=== PATIENT | male | born 1940 | race Caucasian/White ===

== ENCOUNTER 2018-12-20 10:18 | Outpatient (REF) | payer MEDICARE, BC, SELFPAY ==
[2018-12-20 14:39] LABS: BUN 10 mg/dL (7-18); CREATININE 0.92 mg/dL (0.70-1.30); Chloride 105 mmol/L (98-107); Glucose 117 mg/dL (70-100); Potassium 4.7 mmol/L (3.5-5.1); Sodium 141 mmol/L (136-145)
== END 2018-12-20 10:38 ==
LOC: NCHCN 10:18
PROVIDERS: PCP Family Medicine; Visit Provider Family Medicine
DX: I10 Essential (primary) hypertension (principal)
CPT/HCPCS: 80048

== ENCOUNTER 2020-04-16 12:49 | Outpatient (REF) | payer MEDICARE, BC, SELFPAY ==
[2020-04-16 15:27] LABS: Anion Gap 9.5 mmol/L (3-11); BUN 13 mg/dL (7-18); CO2 27.5 mmol/L (21.0-32.0); CREATININE 1.12 mg/dL (0.70-1.30); Calcium 8.9 mg/dL (8.5-10.1); Chloride 105 mmol/L (98-107); Glucose 93 mg/dL (74-106); Potassium 4.5 mmol/L (3.5-5.1); Sodium 142 mmol/L (136-145)
== END 2020-04-16 13:09 ==
LOC: NCHCN 12:49
PROVIDERS: PCP Family Medicine; Visit Provider Family Medicine
DX: I10 Essential (primary) hypertension (principal)
CPT/HCPCS: 80048

== ENCOUNTER → 2020-05-13 10:00 | Outpatient (BNVA) | payer MEDICARE, BC, SELFPAY | PROVIDERS: PCP Family Medicine; Referring Provider Family Medicine; Visit Provider Psychiatry & Neurology Neurology | DX: R26.89 Other abnormalities of gait and mobility (principal); G25.0 Essential tremor | CPT/HCPCS: 99204; 99215 ==

== ENCOUNTER 2021-05-06 09:31 | Outpatient (REF) | payer MEDICARE, SELFPAY ==
[2021-05-06 14:22] LABS: Anion Gap 11.1 mmol/L (3-11); BUN 13 mg/dL (7-18); CO2 24.9 mmol/L (21.0-32.0); CREATININE 0.8 mg/dL (0.70-1.30); Calcium 8.7 mg/dL (8.5-10.1); Chloride 106 mmol/L (98-107); Glucose 98 mg/dL (74-106); Magnesium 1.6 mg/dL (1.8-2.4); Potassium 4.7 mmol/L (3.5-5.1); Sodium 142 mmol/L (136-145); Vitamin B12 581 pg/mL (193-986)
== END 2021-05-06 09:32 | disposition home or self-care (01) ==
LOC: LBN 09:31
PROVIDERS: PCP Family Medicine; Visit Provider Family Medicine
DX: I10 Essential (primary) hypertension (principal); R26.89 Other abnormalities of gait and mobility
CPT/HCPCS: 80048; 82607; 83735

== ENCOUNTER 2021-05-22 04:24 | Outpatient (CLI) | payer MEDICARE, SELFPAY ==
--- NOTE | 2021-05-22 | DI.RAD_ITS ---
Exam(s) XR CHEST 2V PA LATERAL EXAM: XR CHEST 2V PA LATERAL CLINICAL HISTORY: RT BASILAR RALES,R09.89 TECHNIQUE: 2D digital imaging was performed. COMPARISON: No exams were available for comparison FINDINGS: MEDIASTINUM: Normal. HEART: Normal. PULMONARY VASCULATURE: Normal. LUNGS: Clear. PLEURAL SPACE: No pleural effusion or pneumothorax. BONE:Degenerative changes in the spine. IMPRESSION: No acute pulmonary findings. DATA REPOSITORY: RADIATION DOSE DELIVERED:
== END 2021-05-22 04:44 ==
PROVIDERS: PCP Family Medicine; Visit Provider Family Medicine
DX: R09.89 Other specified symptoms and signs involving the circulatory and respiratory systems (principal)
CPT/HCPCS: 71046

== ENCOUNTER 2021-08-31 03:02 | Outpatient (CLI) | payer MEDICARE, SELFPAY ==
[2021-08-31 15:51] LABS: Source Nasal/Nares
[2021-08-31 21:29] LABS: COVID-19 PCR Negative (Negative)
== END 2021-08-31 03:03 | disposition home or self-care (01) ==
LOC: LBO 03:02
PROVIDERS: PCP Family Medicine; Visit Provider Family Medicine
DX: Z20.822 Contact with and (suspected) exposure to COVID-19 (principal); Z01.818 Encounter for other preprocedural examination
CPT/HCPCS: 87635

== ENCOUNTER 2021-09-02 01:45 | Outpatient (CLI) | payer MEDICARE, SELFPAY ==
--- NOTE | 2021-09-02 | DI.CT_ITS ---
Exam(s) CT CHEST W EXAM: CT CHEST W CLINICAL HISTORY: BASILAR RALES,R09.89 TECHNIQUE: Imaging Protocol: Axial computed tomography images with coronal and sagittal reformatted images were created and reviewed CONTRAST MATERIAL: Intravenous: Omnipaque 350 Contrast volume:70 mL. COMPARISON: CR XR CHEST 2V PA LATERAL from 05/22/2021 CR XR CHEST 2V PA LATERAL from 05/22/2021 FINDINGS: Tracheobronchial tree: Patent where visualized. Pulmonary parenchyma: No consolidation or dominant measurable mass. Mild scarring in the lung bases. Mild chronic interstitial disease in the lung bases. Mediastinum and Quyen: No dominant adenopathy or fluid collection. Thyroid gland: Unremarkable. Pleura: No effusion or pneumothorax. Heart: The heart is not dilated. Coronary artery calcification. No pericardial effusion. Aorta: Thoracic aorta non-dilated. Atherosclerosis. Upper abdomen: Fatty infiltration of the liver. 9 mm cyst in the right kidney. No follow-up is rec ommended. Lymph nodes: Within normal limits. Bones: Within normal limits for the patient's age. Soft tissues: Unremarkable. IMPRESSION: 1. 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 2. No acute pulmonary process. RADIATION DOSE DELIVERED: 536.92mGy.cm Total DLP DATA REPOSITORY: All CT scans at this facility are submitted to the National Radiology Data Registry (NRDR) Dose Index Registry (DIR) with the [employer] (ACR). RADIATION OPTIMIZATION: All CT scans at this facility use at least one of these dose optimization te chniques: automated exposure control; mA and/or kV adjustment per patient size (includes targeted exa ms where dose is matched to clinical indication); or iterative reconstruction.
[2021-09-02] MEDS: Omnipaque 350 MG/ML 100 ML BTL IJ (13:19)
[2021-09-02] MEDS: Normal Saline Flush 10 ML SYR IVP (13:20)
[2021-09-02] MEDS: Normal Saline - Diluent 50 ML VIAL IV (13:20)
== END 2021-09-02 02:05 ==
PROVIDERS: PCP Family Medicine; Visit Provider Family Medicine
DX: R09.89 Other specified symptoms and signs involving the circulatory and respiratory systems (principal); J84.10 Pulmonary fibrosis, unspecified; J98.4 Other disorders of lung
CPT/HCPCS: 71260; J3490

== ENCOUNTER 2021-09-02 01:45 | Outpatient (CLI) | payer MEDICARE, SELFPAY ==
[2021-09-02] MEDS: Barium Sulfate 81% w/w for Oral Suspension 148 GM BTL 80 GM PO (15:09)
[2021-09-02] MEDS: Barium Sulfate Oral Paste 40% W/V 230 ML TUBE 13 ML PO (15:11)
[2021-09-02] MEDS: Barium Sulfate 40% W/V 1500 CPS 250 ML BTL 20 ML PO (15:11)
--- NOTE | 2021-09-02 15:12 | DI.RAD_ITS ---
Exam(s) RF MODIFIED SPEECH BA SWALLOW TECHNIQUE: Modified barium swallow was performed in conjunction with speech pathology. CONTRAST MATERIAL: Oral barium contrast was administered according to protocol. COMPARISON: No exams were available for comparison FINDINGS: Note that this is not a dedicated esophagram, distal esophagus not evaluated. There is no evidence of aspiration or penetration of thick liquids or barium coated delete cookies. Speech pathology report to follow. There was penetration of thin liquids. Cough reflex was variable . ... IMPRESSION: Penetration of thin liquids was noted during the examination. RADIATION DOSE DELIVERED: noelle Caballero= mGy
--- NOTE | 2021-09-02 15:21 | ST.MBS_ITS ---
Date of Service Date of service: 09/02/21 Time of Service: 15:21 Modified Barium Swallow Study Findings: Videofluoroscopic Swallowing Evaluation (VFSE) / Modified Barium Swallow Study (MBSS) Speech Language Pathology Report HPI: Pt is a 81 year old male referred for clinical swallowing evaluation and modified barium swallow study per Dr. Valdez Cardona given pharyngeal phase dysp hagia and concerns regarding rales in right lung base/aspiration concern. PMHx: Basilar rales, pharyngeal phase dysphagia, osteoarthritis (r knee), hyperlipidemia, hypertension, mild cognitive impairment, GERD Predisposing dysphagia risk factors: GERD , cervical kyphosis, cognitive impairment Clinical signs of possible chronic dysphagia: pharyngeal globus, overt s.s a spiration (TC) Precipitating dysphagia risk factors / triggering event: Noted basilar rales per MD recently Previous Imaging: N/A IMPRESSIONS: Swallow safety is impaired; swallow efficiency is impaired. Mild oropharyngeal dysphagia with esophageal component, likely chronic, characterized by reduced initiation of pharyngeal swallow, reduced laryngeal elevation, partial epiglottic inversion, and incomplete laryngeal vestibule closure resulting in trace silent aspiration during the swallow; cough reflex is noted however not consistent during micro-aspiration events, instead stimulating throat clear response; partial laryngeal excursion is paired with incoordinated movement/hesitancy; noted esophageal retention does not appear to impede overall bolus flow; small hypertrophy noted along cervical esophagus at C4 level; small amount of residue remains independent of texture/consistency at C5 level, however not cleared despite use of trialed strategies. Suspect either esophageal stasis or trace silent micro-aspiration may be partial cause of patient's intermittent throat clearing. Patient appears to be at low-moderate risk for potential aspiration PNA and/or pulmonary compromise. Diet modification is not indicated. Swallow prognosis is good-fair given age, pmhx, and pending patient/caregiver training in risk management as outlined, including use of trialed compensatory strategies as outlined above. Patient appears to be a good candidate for behavioral swallow rehabilitation. Specialist referrals: GI Ancillary tests: N/A Diet texture recommendation: IDDSI Level 7 regular solids, 0 thin liquids Please see further details at www.iddsi.org Risk Management: Behavioral reflux precautions, including upright position during + 90 mins after meals. Small sips Multiple swallows per bolus x2 to encourage clearance of pharyngeal stasis/residue Control risk factors for aspiration pneumonia via (a) thorough oral hygiene & (b) maintaining physical mobility as tolerated PLAN: Therapy: Recommend subsequent outpatient session with [employer] SET UP OPERATOR to review results of today's exam and develop treatment plan as appropriate. May consider the following: - super supraglottic swallow (as exercise vs comp strategy), effortful swallow, CTAR, use of chin tuck + TC with re-swallow after thin liquids, small sip size, and monitoring for overt s/sx aspiration during thin liquid intake in particular, utilizing volitional throat clear + reswallow - RMST Goal: TBD pending patient/caregiver interview Follow-up exam: N/A Thank you for allowing me to take part in this patient's care. Please feel free to contact me with any questions/concerns. Syeda Gonzalez MA CCC-[employer] SET UP OPERATOR Speech Language Pathologist [phone] SUBJECTIVE: Patient reports he has had to cut meats in smaller pieces/take smaller bites/ chew more consciously but has not changed his diet nor has unintentionally lost weight due to swallowing difficulties; does note that pills are at times difficult, will stick at back of throat. OBJECTIVE: Videofluoroscopic Swallow Evaluation (VFSE/MBSS) was conducted in the lateral and [id number] projections by Speech-Language Pathologist, in collaboration with Radiologist, to evaluate oropharyngeal swallow function. Anatomic view under fluoroscopy: WFL PO Barium Contrast Trials Oral barium water-soluble contrast was administered as follows: IDDSI Level 0 Varibar thin liquid (40% w/v) IDDSI Level 2 Varibar nectar thick/mildly thick liquid (40% w/v) IDDSI Level 3 Varibar thin honey/liquidised/moderately-thick (40% w/v) IDDSI Level 4 Varibar pudding/pureed/extremely thick (40% w/v) IDDSI Level 7 Regular Solid: 1/2 nicky cracker coated in 3 mL Varibar pudding PHYSIOLOGIC FINDINGS (1) Oral Impairment 1 Lip Closure 0-No labial escape 2 Tongue Control 0- Cohesive bolus between tongue to palatal seal 3 Bolus Preparation/Mastication 1- Slowed/prolonged chewing/mashing with complete recollection 4 Bolus Transport/Lingual Motion 0- Brisk tongue motion 5 Oral residue 1- Trace residue lining oral structures Location palate, tongue 6 Initiation of pharyngeal swallow 3- Bolus head at pyriform sinus Pharyngeal Impairment 7 Velar Elevation 0- No bolus between soft palate and pharyngeal wall 8 Laryngeal Elevation 1- Partial superior movement of thyroid cartilage with partial approximation of arytenoids to epiglottic petiole 9 Anterior Hyoid Excursion 1- Partial anterior movement noted incoordinated movement/hesitancy 10 Epiglottic Movement 1- Partial inversion 11 Laryngeal Vestibule Closure 1- Incomplete; narrow column of air/contrast in laryngeal vestibule Penetration during initial swallow onset from current bolus Aspiration during initial swallow onset from current bolus PAS / Overall 8-Point Penetration-Aspiration Scale (2) 5 - Material enters the airway contacts the vocal folds and is not ejected from the airway Clinical Indicator(s) of Prandial/Postprandial Aspiration Cough, Throat Clear 12 Pharyngeal Stripping Wave 1- Present; diminished 13 Pharyngeal Contraction 1- Incomplete; pseudodiverticulae 14 PES/UES Opening 1- Partial distension and partial duration; partial obstruction of flow 15 Tongue Base Retraction 1- Trace column of contrast between tongue base and posterior pharyngeal wall 16 Pharyngeal residue 1- Trace residue within or on pharyngeal structures Location [place] Pharyngeal Residue Severity Rating Scale(3) Valleculae II Trace 1-5% Trace coating Pyriform sinuses II Trace 1-5% Trace coating Aryepiglottic folds Esophageal Impairment 17 Esophageal Clearance in Upright Position 1- Esophageal retention Notes This study was performed for interpretation only of the oropharyngeal and pharyngoesophageal domains of swallowing, and is not intended to diagnose any other radiologic abnormalities or substitute for a formal esophagram study. Does not appear to impede bolus flow; small hypertrophy noted along cervical esophagus at C4 level; small amount of residue independent of texture/consistency remains at C5 level JENNIFER: (4) Severity LEVEL 6 - Full PO: normal diet - Within functional limits/modified independence Trialed Compensatory Strategies & Outcome: Maneuvers Successful/Unsuccessful (+/-) Postures Successful/Unsuccessful (+/-) 3 second Preparatory Set Chin Tuck Posture + Cough Posterior Head tilt Reflexive + Cued + Throat Clear Head Tilt to Reflexive + Left Cued Right Saliva swallow x2 - Head Turn/Rotation to Supraglottic Swallow Left Super-supraglottic Swallow Right Bolus Modifications Successful/Unsuccessful (+/-) Delivery/Alternating Consistencies - Wash with thin + Delivery/Via Straw Reduced Volume + Reduced Rate of Intake + Increased Viscosity Other: Coding CPT Codes MOTION FLUOROSCOPY/SWALLOW - 89548 ([id number]) 1: Janiya Salomon et al. ?MBS measurement tool for swallow impairment--MBSImp: establishing a standard.? Dysphagia vol. 23,4 (2008): 392-405. doi:10.1007/y85345-429-6835-8 2: (Jackie, et al, 1996) 3: (Saul et al, 2015) 4: The Dysphagia Outcome and Severity Scale is a 7-point scale developed to systematically rate the functional severity of dysphagia based on objective assessment and make recommendations for diet level, independence level, and type of nutrition.
== END 2021-09-02 02:05 ==
PROVIDERS: PCP Family Medicine; Visit Provider Speech-Language Pathologist
DX: R13.13 Dysphagia, pharyngeal phase (principal)
CPT/HCPCS: 74221

== ENCOUNTER 2022-03-10 09:06 | Outpatient (CLI) | payer MEDICARE, SELFPAY ==
--- NOTE | 2022-03-10 11:05 | DI.MRI_ITS ---
Exam(s) MR BRAIN WO EXAM: MR BRAIN WO CLINICAL HISTORY: DYSARTHRIA, R47.1, MILD COGNITIVE IMPAIRMENT TECHNIQUE: Multiplanar multisequence MRI of the brain was performed. COMPARISON: CT HEAD WITHOUT CONTRAST from 02/12/2015 FINDINGS: VENTRICLES AND EXTRA AXIAL SPACES: Mild ex vacuo dilatation. MIDLINE SHIFT: None. CEREBRAL PARENCHYMA: Moderate atrophy. White matter changes of small vessel disease, moderate. No f ocus of restricted diffusion to suggest acute infarct. No space-occupying lesion identified. HEMORRHAGE: None. BRAINSTEM/CEREBELLUM: Normal. VISUALIZED PARANASAL SINUSES/MASTOIDS:Clear. [place] OF TERRY: Normal flow void. PITUITARY GLAND: Unremarkable. OTHER FINDINGS: None. IMPRESSION: Atrophy and white matter changes of small vessel disease. No evidence of acute infarct. DATA REPOSITORY:
== END 2022-03-10 09:26 ==
PROVIDERS: PCP Family Medicine; Visit Provider Family Medicine
DX: R47.1 Dysarthria and anarthria (principal); G31.84 Mild cognitive impairment of uncertain or unknown etiology; R90.82 White matter disease, unspecified; G31.89 Other specified degenerative diseases of nervous system
CPT/HCPCS: 70551

== ENCOUNTER → 2022-04-27 13:34 | Outpatient (BNVA) | payer MEDICARE, SELFPAY | PROVIDERS: PCP Family Medicine; Referring Provider Family Medicine; Visit Provider Psychiatry & Neurology Neurology | DX: R26.89 Other abnormalities of gait and mobility (principal); G25.0 Essential tremor; G20 Parkinson's disease; R41.3 Other amnesia; R40.4 Transient alteration of awareness | CPT/HCPCS: 99215 ==

== ENCOUNTER 2022-04-30 09:32 | Outpatient (CLI) | payer MEDICARE, SELFPAY ==
--- NOTE | 2022-04-30 09:14 | DI.RAD_ITS ---
Exam(s) XR KNEE LT 3V AP,LAT,YOEL EXAM: XR KNEE LT 3V AP,LAT,YOEL CLINICAL HISTORY: OA FOR LEFT KNEE. TECHNIQUE: 2D digital imaging was performed of the left knee. Three images were obtained. AP, left and PA tunnel views were obtained. COMPARISON: No previous for comparison. FINDINGS: BONES: No acute fracture is present. No bony destructive lesion is seen. Enthesophytes are seen at b oth the superior and inferior aspect of the patella anteriorly. JOINTS: The knee is normally aligned. There is a small suprapatellar joint effusion. Moderately khoi re tricompartment degenerative changes are present with joint space narrowing and periarticular spurr ing. Chondrocalcinosis is seen in the femoral tibial joint. SOFT TISSUE: Normal. IMPRESSION: Moderately severe degenerative changes of the left knee. DATA REPOSITORY: RADIATION DOSE DELIVERED:
== END 2022-04-30 09:33 | disposition home or self-care (01) ==
LOC: DIORS 09:33
PROVIDERS: PCP Family Medicine; Referring Provider Family Medicine; Visit Provider Student in an Organized Health Care Education/Training Program
DX: M17.12 Unilateral primary osteoarthritis, left knee (principal)
CPT/HCPCS: 20610; 73562; 99213; J1040

== ENCOUNTER 2022-05-05 17:46 | Outpatient (REF) | payer MEDICARE, SELFPAY ==
[2022-05-07 14:22] LABS: HSV 1 DNA Result Negative (Negative); HSV 2 DNA Result Negative (Negative)
== END 2022-05-05 17:47 | disposition home or self-care (01) ==
LOC: NCHCN 17:46
PROVIDERS: PCP Family Medicine; Visit Provider Family Medicine
DX: K12.1 Other forms of stomatitis (principal)
CPT/HCPCS: 87529; U0003

== ENCOUNTER → 2022-05-18 12:13 | Outpatient (BNVA) | payer MEDICARE, SELFPAY | PROVIDERS: PCP Family Medicine; Referring Provider Family Medicine; Visit Provider Psychiatry & Neurology Neurology | DX: R26.89 Other abnormalities of gait and mobility (principal); G25.0 Essential tremor; R41.3 Other amnesia; R40.4 Transient alteration of awareness | CPT/HCPCS: 99214 ==

== ENCOUNTER → 2022-08-11 09:08 | Outpatient (BNVA) | payer MEDICARE, SELFPAY | PROVIDERS: PCP Family Medicine; Referring Provider Family Medicine; Visit Provider Psychiatry & Neurology Neurology | DX: R26.89 Other abnormalities of gait and mobility (principal); G25.0 Essential tremor; G20 Parkinson's disease; R41.3 Other amnesia; R40.4 Transient alteration of awareness | CPT/HCPCS: 99214 ==

== ENCOUNTER 2022-11-01 07:29 | Emergency (ER) | payer MEDICARE, SELFPAY ==
[2022-11-01] VITALS (35 sets, daily range): BP systolic 126–157; BP diastolic 67–86; PULSE 70–79; RESP 18–32; TEMP 37.3; O2SAT 96–99
--- NOTE | 2022-11-01 07:30 | RT.EKG_ITS ---
APPROVED REPORT Exam: Resting ECG Reason for Exam: chest discomfort Patient Location: E HR:78 bpm ECG Measurements Heart Rate 78 AXIS IL 197 P 30 QRSd 92 QRS -45 QT 374 T 51 QTc 427 Conclusion Sinus rhythm...normal P axis, V-rate 60- 99 Left anterior fascicular block...axis(240,-40), init forces inf
[2022-11-01 08:00] LABS: Abs Immature Grans 0.14 10^3/uL (0.0-0.06); Absolute Basophil Count 0.04 10^3/uL (0.0-0.2); Absolute Eosinophil Count 0.11 10^3/uL (0.0-0.7); Absolute Lymphocyte Count 0.82 10^3/uL (1.2-3.4); Absolute Monocyte Count 1.38 10^3/uL (0.1-0.8); Absolute Neutrophil Count 8.02 10^3/uL (1.2-6.7); Basophils % 0.4; HCT 38.4 % (40.0-50.0); HGB 13.4 g/dL (13.5-17.5); Immature Grans % 1.3; Lymphocytes % 7.8; MCH 32.8 pg (27.0-33.0); MCHC 34.9 % (32.0-36.0); MCV 94 fL (80-95); Monocytes % 13.1; Neutrophils % 76.4; Platelet Count 178 10^3/uL (130-400); RBC 4.09 10^6/uL (4.36-5.78); RDW-SD 45.2 fL; WBC 10.51 10^3/uL (4.4-10.8)
--- NOTE | 2022-11-01 08:15 | DI.CT_ITS ---
Exam(s) CT CHEST PE CTA EXAM: CT CHEST PE CTA CLINICAL HISTORY: pleuritic chest pain. TECHNIQUE: Imaging Protocol: Axial CT angiography was performed with multi-slice acquisition and mu lti-planar reconstructions as well as axial, coronal and sagittal MIP reconstructions. CONTRAST MATERIAL: Intravenous: Omnipaque 350 Contrast volume:9 ml COMPARISON: CT CT CHEST W from 09/02/2021 FINDINGS: Pulmonary Arteries: No evidence of filling defect to suggest pulmonary emboli. Tracheobronchial tree: Patent where visualized. Mediastinum and Quyen: No dominant adenopathy or fluid collection. Pulmonary parenchyma: Mildly limited evaluation due to respiratory motion. Mild basilar atelectasis. Mild fibrotic changes. No consolidation or dominant measurable mass. Pleura:tiny left pleural effusion. No pneumothorax. Heart: Mildly dilated. No coronary artery calcifications are seen. Aorta: Thoracic aorta non-dilated. No aneurysm. No dissection. Minimal atherosclerotic changes. Upper abdomen: Unremarkable. Bones: Unremarkable for age. IMPRESSION: Tiny left pleural effusion. Mild basilar atelectasis. No evidence of pulmonary embolism. RADIATION DOSE DELIVERED: 246.26mGy.cm Total DLP DATA REPOSITORY: All CT scans at this facility are submitted to the National Radiology Data Registry (NRDR) Dose Index Registry (DIR) with the [employer] (ACR). RADIATION OPTIMIZATION: All CT scans at this facility use at least one of these dose optimization te chniques: automated exposure control; mA and/or kV adjustment per patient size (includes targeted exa ms where dose is matched to clinical indication); or iterative reconstruction.
[2022-11-01 08:19] LABS: ALT 24 U/L (16-63); AST 19 U/L (15-37); Albumin 3.6 g/dL (3.4-5.0); Alkaline Phosphatase 68 U/L (46-116); Anion Gap 8.1 mmol/L (3-11); BUN 12 mg/dL (7-18); Bilirubin, Total 0.5 mg/dL (0.2-1.0); CO2 27.9 mmol/L (21.0-32.0); Calcium 8.7 mg/dL (8.5-10.1); Chloride 101 mmol/L (98-107); Estimated GFR 76.08 (mL/min/1.73m2); Glucose 135 mg/dL (74-106); Magnesium 1.6 mg/dL (1.8-2.4); Potassium 4.4 mmol/L (3.5-5.1); Sodium 137 mmol/L (136-145); Total Protein 7.3 g/dL (6.4-8.2); Troponin I < 50 ng/L (<or=60)
[2022-11-01 08:29] LABS: D-Dimer 879 ng/mlFEU (<500)
[2022-11-01] MEDS: ACETAMINOPHEN 1,000 MG/100 ML BTL 400 MG IVPB (08:38)
[2022-11-01] MEDS: MAGNESIUM SULFATE 1 GM/100 ML BAG IVPB (09:30)
[2022-11-01 10:51] LABS: Troponin I < 50 ng/L (<or=60)
--- NOTE | 2022-11-01 11:05 | ED.GENADUL_ITS ---
Discharge Plan Disposition Patient Disposition: Home Condition: Stable Discharge Details Clinical Impression: Chest pain, pleuritic, Pleural effusion on left, Hypomagnesemia Primary Care Provider: Valdez Barriga ED Provider: Shaw Calero Home Meds and New Rx's Prescriptions: Continued memantine 10 mg tablet 10 mg PO BID Qty: 180 3RF lisinopril 2.5 mg tablet 2.5 mg PO DAILY magnesium oxide 500 mg capsule 500 mg PO DAILY cholecalciferol (vitamin D3) 25 mcg (1,000 unit) capsule 25 mcg PO DAILY cyanocobalamin (vitamin B-12) Tablet,Chewable 1 tab PO DAILY Rx Instructions: 1000 mcg omeprazole 40 mg capsule,delayed release(DR/EC) 40 mg PO DAILY propranolol 60 MG capsule,extended release 24 hr 60 mg PO DAILY [facility] Restore 1 cap PO DAILY Discharge Instructions Instructions: Chest Pain (ED), Pleural Effusion (ED), Hypomagnesemia (ED) Additional Instructions: Please take acetaminophen (tylenol) - 650mg every 6 hours by mouth as needed for pain. Please follow-up with your primary care physician. Call today to arrange timely follow-up. Be sure to discuss results of labs and diagnostic imaging that was performed today. Additional outpatient diagnostic testing may be necessary. Return to the ER immediately for any worsening or new concerning symptoms. Referrals: Valdez Barriga [Primary Care Provider] - Discharge Data Discharge Date/Time-TO BE ENTERED AT DEPARTURE: 11/01/22 11:31 Medical Decision Making 82-year-old male here with pleuritic chest pain. Patient is saturating well in no respiratory distress. Hemodynamically stable. Plan for PE versus musculoskeletal versus ACS versus less likely pneumothorax. Initial EKG was reviewed interpreted by me: Please report, nondiagnostic. Initial labs reviewed and troponin negative. D-dimer is elevated. CT of the chest was interpreted by radiology\: Tiny left pleural effusion.? Mild basilar atelectasis.? No evidence of pulmonary embolism. Repeat EKG was reviewed and interpreted by me: Please see report, nondiagnostic. Delta troponin negative and unchanged from prior. Patient reassessed and notes significant improvement in pain after acetaminophen IV and magnesium. Suspect musculoskeletal versus possibly related to small pleural effusion. Plan for outpatient follow-up with PCP. All results were discussed with the patient. Usual customary discharge instructions reviewed. Disposition decision was made weighing the risks and benefits of hospitalization versus outpatient treatment, the risk for further decompensation, and the patient's wishes. The patient was stable and requested discharge. Prior to discharge, my usual and customary return precautions were reviewed with the patient - this included follow-up instructions and reason to return to the emergency department if condition worsens, does not improve as expected, or other new concerns arise. Sign Out No HPI General Date/Time Provider Initiated Documentation: 11/01/22 07:42 . Limitations to Documentation: no limitations . HPI Narrative: 82-year-old male here with chief complaint of chest pain. Chest pain is pleuritic in nature and only present when he takes a deep breath. Discomfort is moderate. Discomfort started last night. Pain has persisted. Does not recall any trauma. He has no associated shortness of breath. No associated calf pain. Related Data Home Medications Medication Instructions Recorded Confirmed propranolol 60 mg capsule,24 60 mg PO DAILY 01/18/17 11/01/22 hr,extended release [facility] Restore 1 cap PO DAILY 01/19/17 08/11/22 cholecalciferol (vitamin D3) 25 25 mcg PO DAILY 04/02/22 11/01/22 mcg (1,000 unit) capsule cyanocobalamin (vitamin B-12) 1 tab PO DAILY 04/02/22 11/01/22 lisinopril 2.5 mg tablet 2.5 mg PO DAILY 04/02/22 11/01/22 magnesium oxide 500 mg capsule 500 mg PO DAILY 04/02/22 11/01/22 omeprazole 40 mg capsule,delayed 40 mg PO DAILY 04/27/22 11/01/22 release memantine 10 mg tablet 10 mg PO BID #180 tabs 05/18/22 11/01/22 Previous Rx's Medication Instructions Recorded memantine 10 mg tablet 10 mg PO BID #180 tabs 05/18/22 Allergies Allergy/AdvReac Type Severity Reaction Status Date / Time soy AdvReac Mild sneezing Unverified 11/01/22 08:14 General Stated Complaint: Chest Pain TORIBIO: 3 Review of Systems All systems reviewed & are unremarkable except as noted in HPI and below Constitutional Constitutional: Denies fever(s) Cardiovascular Cardiovascular: Reports as per HPI Respiratory Respiratory: Reports as per HPI Musculoskeletal Musculoskeletal: Reports as per HPI PFSH All Active Problems (Updated 11/01/22 @ 11:09 by Shaw Calero MD) Chest pain, pleuritic (Acute) Pleural effusion on left (Acute) Hypomagnesemia (Acute) Osteoarthritis of left knee (Acute) Nonspecific paroxysmal spell (Acute) Memory loss (Acute) Parkinsonism (Acute) Dysarthria (Acute) Primary osteoarthritis of right knee (Acute 02/10/18) Osteoarthritis (Chronic) Loss of balance (Acute) Alcohol use (Acute) Dysphagia, pharyngeal phase (Acute) Essential tremor (Acute) Imbalance (Acute) Medical History Benign essential hypertension Cataract Erectile dysfunction GERD (gastroesophageal reflux disease) Hyperlipidemia Hypertension Macular degeneration Mild cognitive impairment, so stated Osteoarthritis of right knee Pulmonary fibrosis Rosacea Surgical History S/P cataract extraction Family History Father Heart disease Mother Breast cancer Social History Smoking/Tobacco Use Status: Former Tobacco Use Smoking risk assessment performed?: Yes Alcohol Intake: current Alcohol Intake frequency: 0-2 drinks per day Drug use: Never Household members: spouse Housing: house Number of Children: 3 number of grandchildren: 6 What is your relationship status?: Panel score (0-1 are the most socially isolated patients): 1 Seatbelt use: always Do you feel safe in your relationship?: Yes Exam Const General: cooperative and no acute distress HENMT Mouth: moist mucous membranes Eyes Conjunctivae: normal conjunctivae Sclera: normal sclerae Neck Neck: trachea midline and supple Resp Effort & Inspection: normal respiratory effort Auscultation: clear to auscultation bilaterally, no rales, no rhonchi and no wheezes Cardio Rate: regular rate and not tachycardic Rhythm: regular rhythm GI Palpation: soft, not firm, no guarding, no masses, not rigid and nontender Skin General skin exam: no rashes or lesions noted Neuro General: patient alert, patient awake and tone normal Extrem General: no calf tenderness and no edema Psych Appearance: grossly normal Mental Status: mental status grossly normal Course Vital Signs Vital signs: Vital Signs Temperature 37.3 C 11/01/22 07:36 Pulse 76 11/01/22 07:36 Respiratory Rate 18 11/01/22 07:36 Blood Pressure 157/80 H 11/01/22 07:36 Pulse Oximetry 99 11/01/22 07:36 Temperature 37.3 C 11/01/22 07:36 Temperature Source Oral 11/01/22 07:36 Pulse 74 11/01/22 08:31 Pulse 76 11/01/22 08:40 Respiratory Rate 22 11/01/22 08:40 Respiratory Effort Non-Labored 11/01/22 07:56 Respiratory Depth Normal 11/01/22 07:56 Respiratory Pattern Normal 11/01/22 07:56 Blood Pressure 145/79 H 11/01/22 08:31 Blood Pressure Mean 92 11/01/22 08:31 Blood Pressure Position Sitting 11/01/22 07:36 Pulse Oximetry 98 11/01/22 08:40 Oxygen Delivery Method Room Air 11/01/22 07:36 Oxygen Flow Rate 0 11/01/22 07:36 Lab/Test Results Lab/Test Results: Laboratory Tests Range/Units 11/01/22 11/01/22 11/01/22 07:42 07:50 07:50 WBC (4.4-10.8) 10^3/uL RBC (4.36-5.78) 10^6/uL Hgb (13.5-17.5) g/dL Hct (40.0-50.0) % MCV (80-95) fL MCH (27.0-33.0) pg MCHC (32.0-36.0) % RDW (11.8-14.1) % Plt Count (130-400) 10^3/uL MPV (8.0-11.0) fL Immature Gran % Neutrophils % Lymphocytes % Monocytes % Eosinophils % Basophils % Nucleated RBC % (0.0-0.3) % Absolute Neutrophils (1.2-6.7) 10^3/uL Absolute Lymphocytes (1.2-3.4) 10^3/uL Absolute Monocytes (0.1-0.8) 10^3/uL Absolute Eosinophils (0.0-0.7) 10^3/uL Absolute Basophils (0.0-0.2) 10^3/uL D-Dimer (<500) ng/mlFEU 879 H Sodium (136-145) mmol/L 137 Potassium (3.5-5.1) mmol/L 4.4 Chloride (98-107) mmol/L 101 Carbon Dioxide (21.0-32.0) mmol/L 27.9 Anion Gap (3-11) mmol/L 8.1 BUN (7-18) mg/dL 12 Creatinine (0.70-1.30) mg/dL 1.0 Est GFR (CKD-EPI 2020) (mL/min/1.73m2) 76.08 Glucose (74-106) mg/dL 135 H Calcium (8.5-10.1) mg/dL 8.7 Magnesium (1.8-2.4) mg/dL 1.6 L Total Bilirubin (0.2-1.0) mg/dL 0.5 AST (15-37) U/L 19 ALT (16-63) U/L 24 Alkaline Phosphatase (46-116) U/L 68 Troponin I Cancelled < 50 Total Protein (6.4-8.2) g/dL 7.3 Albumin (3.4-5.0) g/dL 3.6 Range/Units 11/01/22 11/01/22 07:50 10:30 WBC (4.4-10.8) 10^3/uL 10.51 RBC (4.36-5.78) 10^6/uL 4.09 L Hgb (13.5-17.5) g/dL 13.4 L Hct (40.0-50.0) % 38.4 L MCV (80-95) fL 94 MCH (27.0-33.0) pg 32.8 MCHC (32.0-36.0) % 34.9 RDW (11.8-14.1) % 13.0 Plt Count (130-400) 10^3/uL 178 MPV (8.0-11.0) fL 10.0 Immature Gran % 1.3 Neutrophils % 76.4 Lymphocytes % 7.8 Monocytes % 13.1 Eosinophils % 1.0 Basophils % 0.4 Nucleated RBC % (0.0-0.3) % 0.0 Absolute Neutrophils (1.2-6.7) 10^3/uL 8.02 H Absolute Lymphocytes (1.2-3.4) 10^3/uL 0.82 L Absolute Monocytes (0.1-0.8) 10^3/uL 1.38 H Absolute Eosinophils (0.0-0.7) 10^3/uL 0.11 Absolute Basophils (0.0-0.2) 10^3/uL 0.04 D-Dimer (<500) ng/mlFEU Sodium (136-145) mmol/L Potassium (3.5-5.1) mmol/L Chloride (98-107) mmol/L Carbon Dioxide (21.0-32.0) mmol/L Anion Gap (3-11) mmol/L BUN (7-18) mg/dL Creatinine (0.70-1.30) mg/dL Est GFR (CKD-EPI 2020) (mL/min/1.73m2) Glucose (74-106) mg/dL Calcium (8.5-10.1) mg/dL Magnesium (1.8-2.4) mg/dL Total Bilirubin (0.2-1.0) mg/dL AST (15-37) U/L ALT (16-63) U/L Alkaline Phosphatase (46-116) U/L Troponin I < 50 Total Protein (6.4-8.2) g/dL Albumin (3.4-5.0) g/dL PAWSS Have you Been Recently Intoxicated or Drunk Within the Last 30 days?: No Have you Ever Experienced Previous Episodes of Alcohol Withdrawal?: No Have you ever Experienced Withdrawal Seizures?: No Have you ever Experienced Delirium Tremens(DT)s?: No Have you ever undergone Alcohol Rehabilitation Treatment (i.e, inpt ot outpatient treatment programs)?: No Have you ever Experienced Blackouts?: No Have you ever Combined Alcohol with other Downers within the last 90 days?: No Have you ever Combined Alcohol with any other Substance of Abuse during the last 90 days?: No Positive Blood Alcohol level on Presentation? [PCS.BAL]: No Evidence of Increased Autonomic Activity (i.e. HR>120, tremor, sweating, agitation, nausea)?: No Result: 0
== END 2022-11-01 11:31 | disposition home or self-care (01) ==
PROVIDERS: Emergency Provider Student in an Organized Health Care Education/Training Program; PCP Family Medicine
DX: J90 Pleural effusion, not elsewhere classified (principal); J98.11 Atelectasis; R79.89 Other specified abnormal findings of blood chemistry; E83.42 Hypomagnesemia; I10 Essential (primary) hypertension
CPT/HCPCS: 36415; 71275; 80053; 93005; 96365; 96375; 99285; 83735; 84484; 85025; 85379; 93010; J0131; J3475

== ENCOUNTER → 2023-02-09 13:41 | Outpatient (BNVA) | payer MEDICARE, SELFPAY | PROVIDERS: PCP Family Medicine; Visit Provider Psychiatry & Neurology Neurology | DX: R26.89 Other abnormalities of gait and mobility (principal); G25.0 Essential tremor; R41.3 Other amnesia; R40.4 Transient alteration of awareness | CPT/HCPCS: 99214 ==

== ENCOUNTER 2023-03-09 08:45 | Emergency (ER) | payer MEDICARE, SELFPAY ==
[2023-03-09 09:05] VITALS: BP 132/84; PULSE 72; RESP 18; TEMP 37; O2SAT 97
--- NOTE | 2023-03-09 09:16 | W.ED.GENAD ---
Discharge Plan Disposition Patient Disposition: Home Condition: Good Discharge Details Clinical Impression: Dysphagia, pharyngeal phase Primary Care Provider: Valdez Barriga ED Provider: Jesus Clay Home Meds and New Rx's Prescriptions: No Action memantine 10 mg tablet 10 mg PO BID Qty: 180 3RF lisinopril 2.5 mg tablet 2.5 mg PO DAILY magnesium oxide 500 mg capsule 500 mg PO DAILY cholecalciferol (vitamin D3) 25 mcg (1,000 unit) capsule 25 mcg PO DAILY cyanocobalamin (vitamin B-12) Tablet,Chewable 1 tab PO DAILY Rx Instructions: 1000 mcg omeprazole 40 mg capsule,delayed release(DR/EC) 40 mg PO DAILY propranolol 60 MG capsule,extended release 24 hr 60 mg PO DAILY [facility] Restore 1 cap PO DAILY Discharge Instructions Instructions: Food Impaction (ED) Additional Instructions: At this time thankfully it appears that the impaction has passed on its own. Please stick with a soft food diet and a liquid food diet for the next 48 hours to help with any irritation that may be in your esophagus. Please follow-up closely with your primary care provider for further discussion of motility studies on an outpatient nonemergent basis. If you notice any worsening of your symptoms, or any new symptoms such as vomiting, diarrhea, fever, chills, shortness of breath, chest pain, numbness, weakness, or fainting , please return immediately to the emergency department for reevaluation. Please follow up with your primary care provider as soon as possible for reassessment and reevaluation. As always, it was a pleasure participating in your medical care today. Referrals: Valdez Barriga [Primary Care Provider] - Medical Decision Making This is a pleasant 83-year-old male with a past medical history of dysphagia, previous esophageal stricture and impaction in the past, hypertension, Parkinson's, who presents today for a globus sensation in the throat. Patient states that last night he was eating soup when he felt something got stuck. Continued throughout the night and into the morning. He immediately threw up any liquid they tried to take down this morning. He was unable to take any of his pills. He did contact his medical care group who did recommend he come into the ER for further assessment. However on his way to the ER symptoms seem to improve. Currently he does admit to a mild globus sensation and mild achiness in the throat but no other complaint. He has not tried to drink anything throughout the day otherwise. Patient has no other complaints at this time. No other modifying factors. Physical exam demonstrates a well-appearing male. The patient is actually feeling slightly better now. We did give a liquid trial and the patient tolerated this very well. We then transition to applesauce and the patient tolerated this very well with no vomiting at all. I suspect the patient has thankfully passed the bolus, and now no longer has any obstruction. We will continue to monitor to make sure that he tolerates this well, and if his symptoms remain resolved then he will think we would be able to be discharged and continue to follow-up on an outpatient status with surgery. 9:36 AM Patient has tolerated liquids, soft foods, and now solids without any difficulty. He feels well. Patient is stable for discharge and shows no clinical evidence of an impaction at this time thankfully. Patient will be discharged home with close follow-up. Did discuss with the patient the importance of potential motility study and on outpatient basis. Discussed red flags which to return. I have extensively reviewed the treatment plan and discharge instructions with the patient. I have addressed all patient concerns at this time. The patient was made aware of what symptoms to monitor for that would warrant a return to the emergency department. Discussed the plan with the patient, they demonstrate verbal understanding and agreement with our assessment and plan at this time. The documentation in this chart was dictated using [employer] dictation software. Please excuse any dictation errors. HPI General Date/Time Provider Initiated Documentation: 03/09/23 08:57. 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 Patient states that last night he was eating soup when he felt something got stuck. Continued throughout the night and into the morning. He immediately threw up any liquid they tried to take down this morning. He was unable to take any of his pills. He did contact his medical care group who did recommend he come into the ER for further assessment. However on his way to the ER symptoms seem to improve. Currently he does admit to a mild globus sensation and mild achiness in the throat but no other complaint. He has not tried to drink anything throughout the day otherwise. Patient has no other complaints at this time. No other modifying factors. Related Data Home Medications Medication Instructions Recorded Confirmed propranolol 60 mg capsule,24 60 mg PO DAILY 01/18/17 03/09/23 hr,extended release [facility] Restore 1 cap PO DAILY 01/19/17 03/09/23 cholecalciferol (vitamin D3) 25 25 mcg PO DAILY 04/02/22 03/09/23 mcg (1,000 unit) capsule cyanocobalamin (vitamin B-12) 1 tab PO DAILY 04/02/22 03/09/23 lisinopril 2.5 mg tablet 2.5 mg PO DAILY 04/02/22 03/09/23 magnesium oxide 500 mg capsule 500 mg PO DAILY 04/02/22 03/09/23 omeprazole 40 mg capsule,delayed 40 mg PO DAILY 04/27/22 03/09/23 release memantine 10 mg tablet 10 mg PO BID #180 tabs 02/09/23 03/09/23 Previous Rx's Medication Instructions Recorded memantine 10 mg tablet 10 mg PO BID #180 tabs 02/09/23 Allergies Allergy/AdvReac Type Severity Reaction Status Date / Time soy AdvReac Mild sneezing Unverified 02/09/23 13:44 General Stated Complaint: ThroatFB TORIBIO: 3 Review of Systems All systems reviewed & are unremarkable except as noted in HPI and below PFSH All Active Problems (Updated 03/09/23 @ 09:29 by Jesus Clay DO) Osteoarthritis of left knee (Acute) Nonspecific paroxysmal spell (Acute) Memory loss (Acute) Parkinsonism (Acute) Dysarthria (Acute) Primary osteoarthritis of right knee (Acute 02/10/18) Osteoarthritis (Chronic) Loss of balance (Acute) Alcohol use (Acute) Dysphagia, pharyngeal phase (Acute) Essential tremor (Acute) Imbalance (Acute) Medical History Benign essential hypertension Cataract Erectile dysfunction GERD (gastroesophageal reflux disease) Hyperlipidemia Hypertension Macular degeneration Mild cognitive impairment, so stated Osteoarthritis of right knee Pulmonary fibrosis Rosacea Surgical History S/P cataract extraction Family History Father Heart disease Mother Breast cancer Social History Smoking/Tobacco Use Status: Former Tobacco Use Smoking risk assessment performed?: Yes Alcohol Intake: current Alcohol Intake frequency: 0-2 drinks per day Drug use: Never Household members: spouse Housing: house Number of Children: 3 number of grandchildren: 6 What is your relationship status?: Panel score (0-1 are the most socially isolated patients): 1 Seatbelt use: always Do you feel safe in your relationship?: Yes Exam Narrative Exam Narrative: 1.Const: Well-nourished, Well-developed, appearing stated age 2.Eyes: PERRL, no conjunctival injection, and symmetrical lids. 3.ENT: Atraumatic external nose and ears. Moist MM. Neck: Symmetric, trachea midline, No thyromegaly. 4.CVS: +S1/S2, No murmurs or gallops. Peripheral pulses 2+ and equal in all extremities. Brisk capillary refill in all extremities. 5.RESP: Unlabored respiratory effort. Clear to auscultation bilaterally. No wheezes rales or rhonchi 6.GI: Soft, Nontender/Nondistended, No hepatosplenomegaly. No guarding or rebound. 7.MSK: Normocephalic/Atraumatic, Extremities w/o deformity or ttp No cyanosis or clubbing, Normal movement of all extremities 8.Skin: Warm, Dry. No rashes or lesions. 9.Neuro: information systems analyst II-XII grossly intact. Sensation grossly intact, no focal neurologic deficits. 10.Psych: (AAO) x3. Appropriate mood and affect Course Vital Signs Vital signs: Vital Signs Temperature 37 C 03/09/23 09:05 Pulse 72 03/09/23 09:05 Respiratory Rate 18 03/09/23 09:05 Blood Pressure 132/84 03/09/23 09:05 Pulse Oximetry 97 03/09/23 09:05 Temperature 37 C 03/09/23 09:05 Temperature Source Oral 03/09/23 09:05 Pulse 72 03/09/23 09:05 Respiratory Rate 18 03/09/23 09:05 Respiratory Effort Normal, Non-Labored 03/09/23 09:15 Respiratory Pattern Normal 03/09/23 09:15 Blood Pressure 132/84 03/09/23 09:05 Blood Pressure Position Sitting 03/09/23 09:05 Pulse Oximetry 97 03/09/23 09:05 Oxygen Delivery Method Room Air 03/09/23 09:05 Oxygen Flow Rate 0 03/09/23 09:05 Pain Level 0 03/09/23 09:05
[2023-03-09 09:43] VITALS: BP 134/86; PULSE 70; RESP 20; TEMP 36.8; O2SAT 99
== END 2023-03-09 09:48 | disposition home or self-care (01) ==
PROVIDERS: Emergency Provider Student in an Organized Health Care Education/Training Program; PCP Family Medicine
DX: R13.13 Dysphagia, pharyngeal phase (principal)
CPT/HCPCS: 85027; 99283; 82728; 82746; 83540; 83550

== ENCOUNTER 2023-03-09 17:39 | Outpatient (REF) | payer MEDICARE, SELFPAY ==
[2023-03-09 13:48] LABS: HCT 43.2 % (40.0-50.0); HGB 14.5 g/dL (13.5-17.5); MCH 31.7 pg (27.0-33.0); MCHC 33.6 % (32.0-36.0); MCV 94 fL (80-95); MPV 10.1 fL (8.0-11.0); Platelet Count 180 10^3/uL (130-400); RBC 4.58 10^6/uL (4.36-5.78); RDW 13.3 % (11.8-14.1); RDW-SD 46.4 fL; WBC 5.79 10^3/uL (4.4-10.8)
[2023-03-09 14:35] LABS: Iron 114 ug/dL (65-175); Total Iron Binding Capacity 268 ug/dL (250-450); Transferrin Sat 43 % (20-55)
[2023-03-09 14:51] LABS: Ferritin 439 ng/mL (26-388); Folate 10.2 ng/mL (8.6-20.0)
== END 2023-03-09 17:40 | disposition home or self-care (01) ==
LOC: NCHCN 17:39
PROVIDERS: PCP Family Medicine; Visit Provider Family Medicine
DX: D64.9 Anemia, unspecified (principal)
CPT/HCPCS: 85027; 82728; 82746; 83540; 83550

== ENCOUNTER → 2023-05-11 13:41 | Outpatient (BNVA) | payer MEDICARE, SELFPAY | PROVIDERS: PCP Family Medicine; Visit Provider Psychiatry & Neurology Neurology | DX: R26.89 Other abnormalities of gait and mobility (principal); G25.0 Essential tremor; R41.3 Other amnesia; R40.4 Transient alteration of awareness | CPT/HCPCS: 99214 ==

== ENCOUNTER 2023-05-16 02:53 | Outpatient (CLI) | payer MEDICARE, SELFPAY ==
--- NOTE | 2023-05-16 09:00 | ST.MBS ---
Date of Service Date of service: 05/16/23 Time of Service: 09:00 Modified Barium Swallow Study Findings: Video fluoroscopic Swallowing Evaluation (VFSE) / Modified Barium Swallow Study (MBSS) Speech Language Pathology Report Referred by: Valdez Barriga History of Present Illness: Daniele is an 83 Y/O M with Parkinsonism, history of GERD, MCI, prior esophageal stricture and impaction, and seen previously for pharyngeal dysphagia (including MBSS) but with some suspected progression since that time. Recent impaction episode also particularly concerning to the patient. This date patient reports no additional episodes of swallowing difficulty since most recent episode. PFSH All Active Problems? Osteoarthritis of left knee (Acute) Nonspecific paroxysmal spell (Acute) Memory loss (Acute) Parkinsonism (Acute) Dysarthria (Acute) Primary osteoarthritis of right knee (Acute 02/10/18) Osteoarthritis (Chronic) Loss of balance (Acute) Alcohol use (Acute) Dysphagia, pharyngeal phase (Acute) Essential tremor (Acute) Imbalance (Acute) Medical History? Benign essential hypertension Cataract Erectile dysfunction GERD (gastroesophageal reflux disease) Hyperlipidemia Hypertension Loose stools Macular degeneration Mild anemia Mild cognitive impairment, so stated Mouth ulcer Osteoarthritis of right knee Pulmonary fibrosis Rosacea Surgical History? S/P cataract extraction IMPRESSIONS: Swallow safety is preserved; swallow efficiency is impaired. Mild-moderate chronic pharyngo<esophageal dysphagia. Characterized primarily by lower esophageal stricture (per radiologist) as well as CP prominence and mucosal shelving with associated PES residue (sometimes consistent with pre-Zenker's diverticulum sx), as well as mild reduced epiglottic inversion and delayed pharyngeal initiation resulting in moderate flash penetration of liquid bolus prior to/during the swallow that is largely resolved by swallow completion. Some mild vallecular residue is also noted across textures/consistencies, improves with saliva swallow. His airway protection actually appears improved over prior MBSS and he is largely without any oral phase deficits; swallow profile is not particularly consistent with parkinsonian sx at this time. It is likely that patient's recent stricture episodes/symptoms are explained by lower esophageal changes possibly also complicated by changes in the pharyngo-esophageal segment (cricopharyngeus). See images pasted below this note for examples. No aspiration occurred. Patient appears to be at low risk for potential aspiration PNA, mild risk of airway obstruction/compromise and low risk for malnutrition, low risk for dehydration. Diet modification is indicated; non-oral nutrition is indicated. Swallow prognosis is good-fair given: Positive prognostic factors: Availability of medical management options. Negative prognostic factors: Age, Time since onset, Cognitive status, Surgical/anatomical factors, Patient appears to be a fair candidate for behavioral swallow rehabilitation. RECOMMENDATIONS: Diet Texture Recommendation:? IDDSI LEVEL SOLIDS 6-Soft & Bite-Sized Solids LIQUIDS 0-Thin Liquids Please see further details at?[email or web address].iddsi.[email or web address]://www.iddsi.org/ MEDICATIONS Whole, or large pills cut or crushed, as able with 0-Thin Liquids. Do not alter medications (e.g., cut)? without advice from your MD or pharmacist. Diet texture modification is per patient's preference; please adjust diet textures at patient's discretion & collaboration with care team. Risk Management Strategies:? Behavioral reflux precautions, including upright position during + 90 mins after meals. Small bites, approx [id number] Small sips, approx 10 mL Alternate bites/sips Multiple swallows per bolus to encourage clearance of pharyngeal stasis/residue Small/frequent meals throughout the day. Control risk factors for aspiration pneumonia via (a) thorough oral hygiene & (b) maintaining physical mobility as tolerated PLAN: Manage with medical team for now, follow reflux precautions and other recommendations as above. Return PRN if symptoms worsen/change. Repeat MBSS PRN. ----- OBJECTIVE Videofluoroscopic Swallow Evaluation (VFSE/MBSS) was conducted in the lateral and [id number] projection by Speech-Language Pathologist, in collaboration with Radiologist, to evaluate oropharyngeal swallow function. Anatomic view under fluoroscopy: CP/UES abnormalities. See photos below. PO Barium Contrast Trials Oral barium water-soluble contrast was administered as follows: IDDSI Level 0 Varibar thin liquid (40% w/v) IDDSI Level 2 Varibar nectar thick/mildly thick liquid (40% w/v) IDDSI Level 4 Varibar pudding/pureed/extremely thick (40% w/v) IDDSI Level 7 Regular Solid: 1/2 nicky cracker coated in 3 mL Varibar pudding 13 mm barium tablet taken with Thin Liquids. MBSImP Component Scores: COMPONENT Scale SCORE 1 Lip closure (0-4) 0 Resulted in no labial escape 2 Hold Position (0-3) 0 Maintained a cohesive bolus between tongue to palatal seal 3 Bolus Preparation (0-4) 0 Resulted in timely and efficient chewing and mashing 4 Bolus Transport (0-4) 0 Was with brisk tongue motion 5 Oral Residue (0-4) 1 Was a trace, lining oral structures 6 Swallow Initiation (0-4) 3 Occurred when the bolus head was in the pyriform sinuses 7 Soft Palate Elevation (0-4) 0 Resulted in no bolus between soft palate and the pharyngeal wall 8 Laryngeal Elevation (0-3) 1 Was decreased with partial superior movement of thyroid cartilage/partial approximation of arytenoids to epiglottic petiole 9 Anterior Hyoid Motion (0-2) 0 Demonstrated complete anterior movement 10 Epiglottic Movement (0-2) 0 Resulted in complete inversion 11 Laryngeal Closure (0-2) 1 Was incomplete with narrow a column of air/contrast in laryngeal vestibule 12 Pharyngeal Stripping Wave (0-2) 1 Was present, but diminished 13 Pharyngeal Contraction (0-3) 1 Was incomplete, with presence of pseudodiverticulae 14 PES Opening (0-3) 1 Demonstrated partial distension/partial duration, with partial obstruction of flow 15 Tongue Base Retraction (0-4) 1 Allowed a trace column of contrast or air between tongue base and pharyngeal wall 16 Pharyngeal Residue (0-4) 2 Was a collection of residue within or on pharyngeal structures 17 Esophageal Clearance (0-4) 2 Resulted in esophageal retention with retrograde flow below pharyngoesophageal segment Results: COMPONENT Scale SCORE 1 Oral Score (0-18) 3 2 Pharyngeal Score (0-29) 7 3 Esophageal Score (0-4) 2 Dysphagia Outcome and Severity Scale: COMPONENT Scale SCORE 1 LEVEL (1-7) 6 Full PO: Normal Diet - Within functional limits/modified independence Penetration-Aspiration Scale: COMPONENT Scale SCORE 1 Thin liquid (1-8) 2 Contrast entered the airway, remained above the vocal folds, and was ejected from the airway. [address] [place] thick (1-8) 2 Contrast entered the airway, remained above the vocal folds, and was ejected from the airway. 3 Honey thick (1-8) NA 4 Pudding thick (1-8) 1 Contrast did not enter the airway 5 Cracker (1-8) 1 Contrast did not enter the airway Trialed Compensatory Strategies & Outcome: Maneuvers Successful (+) Unsuccessful (-) Postures Successful (+) Unsuccessful (-) 3 second Preparatory Set? ? +/- Chin Tuck Posture? ? Cough? ? Posterior Head tilt? Reflexive? Cued? Throat Clear? ? Head Tilt to? Reflexive? Left? Cued? Right? ? Saliva swallow? ? + Head Turn/Rotate to? ? Supraglottic Swallow? Left? ? Super-supraglottic Swallow? Right? ? Bolus Modifications Successful (+) Unsuccessful (-) Delivery/Alternating Consistencies ? Follow with Liquid Wash + resolved esophageal stasis of puree, not barium tablet ? Follow with Solid Bolus? - did not resolve tablet stasis in distal esophagus Delivery/Via Straw? ? Reduced Volume? ? Reduced Rate of Intake? ? Increased Viscosity? ? +/- only very mildly improved depth of liquid penetration, not likely to change safety risk clinically Other:?? ? CP prominence during swallow: Post-swallow residue above CP muscle Additional PES changes not appearing to significantly impact bolus flow: Thank you for allowing us to take part in this patient's care. Please feel free to contact the [facility] Speech Language Pathology Department with any questions/concerns. Coding CPT Codes MOTION FLUOROSCOPY/SWALLOW - [id number] ([id number])
[2023-05-16] MEDS: Barium Sulfate 700 MG TAB PO (09:30)
[2023-05-16] MEDS: Barium Sulfate 40% W/V 240 ML BTL 80 ML PO (09:32)
[2023-05-16] MEDS: Barium Sulfate Oral Paste 40% W/V 230 ML TUBE 13 ML PO (09:32)
[2023-05-16] MEDS: Barium Sulfate 40% W/V 1500 CPS 250 ML BTL PO (09:33)
[2023-05-16] MEDS: Barium Sulfate 81% w/w for Oral Suspension 148 GM BTL PO (09:35)
--- NOTE | 2023-05-16 09:36 | DI.RAD_ITS ---
Exam(s) RF MODIFIED SPEECH BA SWALLOW TECHNIQUE: Modified barium swallow was performed in conjunction with speech pathology. CONTRAST MATERIAL: Multiple consistencies oral bariumcontrast was administered. COMPARISON: No exams were available for comparison FINDINGS: Mild vallecular residue. No Zenker diverticulum. Lower esophageal stricture. The barium tablet stuck at this location. Please see detailed speech pathology report. IMPRESSION: Distal esophageal stricture. RADIATION DOSE DELIVERED: noelle Caballero=15 mGy
== END 2023-05-16 03:13 ==
PROVIDERS: PCP Family Medicine; Visit Provider Family Medicine
DX: R13.14 Dysphagia, pharyngoesophageal phase (principal)
CPT/HCPCS: 92611; 74221

== ENCOUNTER → 2023-05-26 10:46 | Outpatient (BNVA) | payer MEDICARE, SELFPAY | PROVIDERS: PCP Family Medicine; Referring Provider Family Medicine; Visit Provider Surgery | DX: K22.2 Esophageal obstruction (principal); K21.9 Gastro-esophageal reflux disease without esophagitis; R13.13 Dysphagia, pharyngeal phase; G20 Parkinson's disease | CPT/HCPCS: 99214; 99242 ==

== ENCOUNTER 2023-05-27 11:10 | Day surgery (SDC) | payer MEDICARE, SELFPAY ==
--- NOTE | 2023-05-26 20:37 | W.PM.ENDDOP ---
Date of service: 05/27/23 Time of Service: 12:00 Endoscopy Report DATE OF PROCEDURE: 05/27/23 PRE-OP DIAGNOSIS: dysphagia/distal esophageal stricture on MBSS/hx of gerd & Schwatcki's ring POST-OP DIAGNOSIS: same SURGEON: Estefany Watson ANESTHESIA TYPE: General:No Airway ESTIMATED BLOOD LOSS: 1 COMPLICATIONS: None DISPOSITION: same day PROCEDURE DESCRIPTION: After informed consent was obtained the patient was take to the procedure room and placed in a supine position. Monitors were applied and a time out was done. The patients name, date of , procedure type, allergies to medications and metal in their body was reviewed. A bite block was placed and the patient was sedated. Once sedated and comfortable the gastroscope was advanced through the oropharynx which was grossly normal into the esophagus. Normal the proximal and mid-esophagus were . In the distal esophagus there was a Schatzki's ring with stricturing. I Am able to pass the scope through this. The scope was advanced into the stomach and through the pylorus into the 3rd portion of the duodenum. The duodenum was noted to be normal . Biopsies were done, of the duodenum, antrum, and greater curvature. All specimen is retrieved and no bleeding is normal. The scope was retracted back into the stomach and biopsies were done to rule out H. pylori. There were ulcers or gastritis. The scope was retroflexed. The cardia and fundus were noted to be normal. There is no hiatal hernia noted. The scope was retracted back into the esophagus. Dilation was carried out for 2 passes with a 16 cm balloon dilator for 2 passes at 2 minutes each at 6 ATMs. There is no bleeding or ulceration noted. I am able to pass the scope easily into the esophagus post dilation. There is no bleeding or ulceration noted . The GE junction was at 38 cm. The scope was removed and the patient was woken up and taken back to [facility] in stable condition. Follow up:
--- NOTE | 2023-05-26 20:39 | PDOC.DSDIS_ITS ---
Date of service: 05/27/23 Time of Service: 12:53 Discharge Plan Disposition Patient Disposition: Home Condition: Good Discharge Details Reason For Visit: egd Attending Provider: Estefany Watson Primary Care Provider: Valdez Barriga Home Meds and New Rx's Prescriptions: Continued lisinopril 2.5 mg tablet 2.5 mg PO DAILY omeprazole 40 mg capsule,delayed release(DR/EC) 40 mg PO DAILY memantine 5 mg tablet 10 mg PO BID propranolol 60 MG capsule,extended release 24 hr 60 mg PO DAILY Eye Promise Restore 1 cap PO DAILY Held magnesium oxide 500 mg capsule 500 mg PO DAILY Hold Instructions: Resume on 05/29/23. cholecalciferol (vitamin D3) 25 mcg (1,000 unit) capsule 25 mcg PO DAILY Hold Instructions: Resume on 06/02/23. cyanocobalamin (vitamin B-12) Tablet,Chewable 1 tab PO DAILY Hold Instructions: Resume on 05/29/23. Rx Instructions: 1000 mcg lutein-zeaxanthin 20-4 mg capsule 1 cap PO DAILY Hold Instructions: Resume on 05/29/23. Discharge Instructions Additional Instructions: Post EGD Instruction ?You had anesthesia for your EGD/stomach scope today.? For your safety, please do the following for the next twenty-four (24) hours: Do Not operate a motor vehicle (car, truck, motorcycle, etc.) Do Not drink alcoholic beverages or use any recreational drugs for the first 24 hours or while taking pain medications. The medications in your body may have a reaction that can be dangerous. Do Not make any important decisions or sign any important papers You have just had a gastroscopy (EGD) or upper GI tract examination. It is important for your smooth recovery that you carefully follow the recommendations below. Do not hesitate to call if any questions should arise about your anesthesia, condition, or care. -Symptoms you may experience during the next 24 hours: ?1. Mild abdominal pain or excessive gas or a bloated feeling which improves with rest, liquids, eating? slightly, and walking as tolerated. 2. Drowsiness and/or forgetfulness because of the medications you were given. ?3. Throat numbness for about 1 hour. 4. A sore throat which you can treat with throat lozenges or by gargling with salt water 4-5 times a day. 5. Redness at the site of your IV which you can treat with warm compresses. SPECIAL INSTRUCTIONS: 1. Liquid diet for the next 24 hours. Than a soft diet for 48 hours. No beef or pork for 72 hrs. No alcohol/carbonated beverages/caffeine for the 72hr. 2. Restart regular medications in one hour. 3. No aspirin or non-steroidal containing medication for 5 days. 4. No lifting over 20 pounds or strenuous activity for the first 72 hours after your procedure. After 72 hours there are no restrictions on your activity, but you may feel fatigued for a few days. Findings: stricture Treatment: Continue with lifestyle modifications: no alcohol, tobacco products, Aspirin or NSAID's (ibuprofen, Motrin, Naprosyn, aleve, etc), soda pop/any carbonated beverages, caffeine (including tea & chocolate), and acidic foods, (tomatoes, citrus, onions, peppermints) spicy or fried/fatty foods. Do not lie down for 30 minutes after eating, and do not eat 2 hours prior to bedtime. Avoid wearing tight fitting clothing/ belts -Repeat dilation in 6 months. F/u in clinic in 6 months -Medications: cont Ompeprzole -Continue to follow lifestyle modifications: No alcohol, tobacco products, Aspirin or NSAID's (ibuprofen, Motrin, Naprosyn, aleve, etc).? Try to limit/avoid:? soda pop/any carbonated beverages, caffeine (including tea & chocolate), and acidic foods, (tomatoes, citrus, onions, peppermints) spicy or fried/fatty foods. Do not lie down for 30 minutes after eating, and do not eat 2 hours prior to bedtime. Avoid wearing tight fitting clothing/ belts. Follow up: -My office will send a letter with the results of your biopsy?s in 2-3wks time. Call the office at [phone] (Office) or [phone] (Hospital), or go to the ER right away if you notice any of the followin. Vomiting blood and /or ?coffee ground? material. ?2. Worsening of abdominal pain or cramping. ?3. Trouble with breathing, cough, and/or fever (temperature above 101.5 F). 4. Increasing pain with swallowing. ?5. Chest pain. 6. Any new symptoms. 7. Worsening of the redness at the IV site Activity:: see above Diet:: cl liquids x 24 hrs Discharge Orders Discharge Orders: Discharge Order (Routine); Ordered 05/27/23 Ordered By: Estefany Watson DS: Diagnosis Discharge Diagnosis (1) Schatzki's ring of distal esophagus: Status: Acute (2) Esophageal stricture: Status: Acute Asessment and Plan: Patient is seen and examined after they are endoscopy.? Patient has minimal sore throat.? They have been able to tolerate liquids.? They do not have any nausea vomiting.? They are not having any chest pain or shortness of breath.? They have been able to pass gas and are not having any abdominal pain or distention.? They have not vomited any blood.? The vital signs have been stable-see nursing notes. We discussed findings on their endoscopy. We reviewed the importance of lifestyle modification-see discharge instructions We reviewed any new medications that the patient may be prescribed-see discharge instructions Patient will either be sent a letter with the biopsy results or follow-up in the office-see discharge instructions. Patient was given explicit instructions to follow-up regarding post endoscopy- refer to discharge (3) Memory loss: Status: Acute (4) Parkinsonism: Status: Acute (5) Dysarthria: Status: Acute (6) Dysphagia, pharyngeal phase: Status: Acute (7) Alcohol use: Status: Acute (8) Osteoarthritis: Status: Chronic (9) Essential tremor: Status: Acute (10) Imbalance: Status: Acute (11) Pulmonary fibrosis: (12) Mild cognitive impairment, so stated: (13) Macular degeneration: (14) Hypertension: (15) Hyperlipidemia: (16) GERD (gastroesophageal reflux disease): (17) Cataract: (18) Benign essential hypertension:
[2023-05-27 11:30] VITALS: BP 127/77; PULSE 60; RESP 16; TEMP 36.3; O2SAT 100
--- NOTE | 2023-05-27 11:47 | ANES.PREOP_ITS ---
General Info Date of Service Date Performed: 05/27/23 Height: 5 ft 7 in Weight: 76.9 kg Body Mass Index (BMI): 26.5 Surgical Procedure: Operation Date: 05/27/23 11:35 Proposed Procedure Side Surgeon p Gastroscopy with Dilation and Biopsy Estefany Watson, DO Meds Allergies and Home Medications Allergies Allergy/AdvReac Type Severity Reaction Status Date / Time soy AdvReac Mild sneezing Verified 05/27/23 11:21 Home Medication Medication Instructions Recorded propranolol 60 mg capsule,24 60 mg PO DAILY 01/18/17 hr,extended release Eye Promise Restore 1 cap PO DAILY 01/19/17 cholecalciferol (vitamin D3) 25 25 mcg PO DAILY 04/02/22 mcg (1,000 unit) capsule cyanocobalamin (vitamin B-12) 1 tab PO DAILY 04/02/22 lisinopril 2.5 mg tablet 2.5 mg PO DAILY 04/02/22 magnesium oxide 500 mg capsule 500 mg PO DAILY 04/02/22 omeprazole 40 mg capsule,delayed 40 mg PO DAILY 04/27/22 release lutein 20 mg-zeaxanthin 4 mg 1 cap PO DAILY 03/16/23 capsule memantine 5 mg tablet 10 mg PO BID 05/26/23 Current Visit Medications: Current Medications Generic Name Dose Route Start Last Admin Trade Name Freq PRN Reason Stop Dose Admin Hyoscyamine Sulfate 0.125 mg 05/27/23 08:35 Hyoscyamine 0.125 Mg Sl/Oral/Chew SL 06/26/23 08:34 DIRECTED PRN Ringer's Solution 1,000 mls @ 80 mls/hr 05/27/23 06:00 IV 06/25/23 23:59 [facility] IV Miscellaneous Supplies 1 each 05/27/23 06:00 Iv Access IV 06/25/23 23:59 DIRECTED YVONNE Ondansetron HCl 4 mg 05/27/23 08:35 Ondansetron 4 Mg/2 Ml Vial IVP 06/26/23 08:34 Q4H PRN PRN Nausea / Vomiting Sodium Chloride 0 ml 05/27/23 06:00 Normal Saline Flush 10 Ml Syr IV 06/25/23 23:59 PRN PRN Sodium Chloride 0 ml 05/27/23 06:00 Normal Saline 10 Ml Vial IJ 06/25/23 23:59 DIRECTED PRN Sterile Water 0 ml 05/27/23 06:00 Water,Injection,Sterile 10 Ml Vial IJ 06/25/23 23:59 DIRECTED PRN PFSH Active Problems Active Problems: Problem Status Onset Code Schatzki's ring of distal esophagus K22.2 Mouth ulcer K12.1 Mild anemia D64.9 Esophageal stricture K22.2 Osteoarthritis of left knee M17.12 Nonspecific paroxysmal spell R40.4 Memory loss R41.3 Parkinsonism G20 Dysarthria R47.1 Primary osteoarthritis of right knee 02/10/18 M17.11 Osteoarthritis M19.90 Loss of balance R26.89 Alcohol use Z72.89 Dysphagia, pharyngeal phase R13.13 Essential tremor G25.0 Imbalance R26.89 Medical History Medical History Benign essential hypertension Cataract Erectile dysfunction GERD (gastroesophageal reflux disease) Hyperlipidemia Hypertension Loose stools Macular degeneration Mild anemia Mild cognitive impairment, so stated Mouth ulcer Osteoarthritis of right knee Pulmonary fibrosis Rosacea Surgical History Surgical History S/P cataract extraction Tobacco Smoking/Tobacco Use Status: Former Tobacco Use Alcohol Alcohol Intake: current Alcohol intake frequency: 0-2 drinks per day Alcohol type: wine Substance Use Substance use: Never Substance use type: does not use Vital Signs and Lab Results Vital Signs Most Recent Vital Signs in EMR: Most Recent Vital Signs Temp Pulse Resp BP Pulse Ox 36.3 C L 60 16 127/77 100 05/27/23 11:30 05/27/23 11:30 05/27/23 11:30 05/27/23 11:30 05/27/23 11:30 Lab Results Blood Type / Crossmatch: No Data to Display Complete Blood Count: No Data to Display Complete Metabolic Panel: No Data to Display Liver Function Panel: No Data to Display Coagulation Panel: No Data to Display Cardiac Panel: No Data to Display Arterial Blood Gas: No Data to Display Venous Blood Gas: No Data to Display Pancreas Panel: No Data to Display Thyroid Panel: No Data to Display Infectious Disease: No Data to Display Blood Cultures: No Data to Display Toxicology Panel: No Data to Display Imaging and Studies Imaging and Studies Study information below may be from another EMR and interpreted by another provider. Please see original notes in EMR for more complete details. EKG Summary: 11/18 Conclusion Sinus rhythm...normal P axis, V-rate 60- 99 Left anterior fascicular block...axis(240,-40), init forces inf Anesthesia Assessment and Plan Anesthesia History Personal History: No History of Anesthesia Complications Family History: No Family History of Anesthesia Complications Exercise Tolerance Exercise Tolerance: Metabolic Equivalents<4 Cardiac & Pulmonary Exam Cardiac Exam: Normal S1/S2 Heart Sounds Pulmonary Exam: Clear Bilateral Breath Sounds Implantable Cardiac Device Does patient have a Pacemaker or an ICD?: No Airway Exam Known Difficult Airway: No Mallampati Class: 2 Mouth Opening: Normal (> 3cm) Thyromental Distance: Greater than 3 cm Neck Range of Motion: Full ROM Neck Circumference: Normal Teeth Condition: Normal Dentition ASA Classification ASA Score: ASA 3 Emergency Case?: No NPO Status NPO Status: NPO Clears >2 hours, Solids >8 hours Anesthesia Plan Resuscitation Status: Full Code Anesthesia Technique: General Anesthesia Airway Planned: Natural Airway Monitors Used: Standard Monitors
[2023-05-27 11:51] VITALS: BMI 26.5
[2023-05-27] MEDS: Lactated Ringers 1,000 ML 80 ML IV (12:01)
--- NOTE | 2023-05-27 12:12 | BOWEL_PTH ---
PATIENT: Abelino Clements LOC: [facility] U#:[id number] AGE/SX: 83/M ROOM: RE05/27/[address]: Estefany Watson : 1940 BED: DIS: 05/27/2023 SPEC #: [id number] RECD: 05/27/23 12:55 STATUS: GHAZAL REFaith #: [id number] PELON: 05/27/23 12:[address]: Estefany Watson DEPT: Surgical Specimen RECD BY: Elena Frederick ENTERED: 05/27/23 12:58 SP TYPE: Bowel OTHR DR: Valdez Barriga Tissues: 1 - BIOPSY BOWEL 2 - STOMACH BIOPSY 3 - STOMACH BIOPSY Procedures: GROSS AND MICRO LEVEL 4 Comments: [id number]
[2023-05-27 12:38] VITALS: BP 113/73; PULSE 70; RESP 18; TEMP 36.2; O2SAT 98
--- NOTE | 2023-05-27 12:54 | W.ANESPOSTOP ---
Postoperative Evaluation Date, Time and Location Date Performed: 05/27/23 Time Performed: 12:54 Patient Location: Day Surgery Unit Vital Signs Most Recent Imported Vital Signs: Most Recent Vital Signs Temp Pulse Resp BP Pulse Ox 36.2 C L 70 18 113/73 98 05/27/23 12:38 05/27/23 12:38 05/27/23 12:38 05/27/23 12:38 05/27/23 12:38 Pain Score Most Recent Pain Score: Most Recent Pain Score Pain Level 0 05/27/23 12:38 Assessment Mental Status: Awake (Alert & Oriented to Patient Baseline) Airway and Respiratory Function: Patent airway with normal (patient baseline) respiratory exam Cardiovascular Function: Hemodynamically Stable Hydration Status: Adequately Hydrated Nausea & Vomiting: No Nausea or Vomiting Pain: Pt. Denies Any Pain Peripheral Nerve Block: Patient did not receive a nerve block
[2023-05-27 13:01] VITALS: BP 137/84; PULSE 64; RESP 16; TEMP 36.1; O2SAT 100
[2023-05-27 13:30] VITALS: BP 156/79; PULSE 71; RESP 16; TEMP 36.4; O2SAT 100
== END 2023-05-27 14:00 | disposition home or self-care (01) ==
PROVIDERS: PCP Family Medicine; Visit Provider Surgery
PROC: 0D758ZZ Dilation of Esophagus, Via Natural or Artificial Opening Endoscopic (ICD-10-PCS; CPT 43249; principal; 2023-05-27 11:30)
DX: K22.2 Esophageal obstruction (principal); G20 Parkinson's disease; K21.9 Gastro-esophageal reflux disease without esophagitis
CPT/HCPCS: 43249; 43239; 88305

== ENCOUNTER → 2023-07-20 12:16 | Outpatient (BNVA) | payer MEDICARE, SELFPAY | PROVIDERS: PCP Family Medicine; Referring Provider Family Medicine; Visit Provider Psychiatry & Neurology Neurology | DX: G25.0 Essential tremor (principal); R41.3 Other amnesia; R40.4 Transient alteration of awareness; I10 Essential (primary) hypertension; M17.12 Unilateral primary osteoarthritis, left knee | CPT/HCPCS: 99214 ==

== ENCOUNTER → 2023-09-13 14:36 | Outpatient (BNVA) | payer MEDICARE, SELFPAY | PROVIDERS: PCP Family Medicine; Referring Provider Family Medicine; Visit Provider Psychiatry & Neurology Neurology | DX: R26.89 Other abnormalities of gait and mobility (principal); G25.0 Essential tremor; R41.3 Other amnesia; R40.4 Transient alteration of awareness; I10 Essential (primary) hypertension | CPT/HCPCS: 99214 ==

== ENCOUNTER → 2023-11-14 09:24 | Outpatient (BNVA) | payer MEDICARE, SELFPAY | PROVIDERS: PCP Family Medicine; Referring Provider Family Medicine; Visit Provider Surgery | DX: K22.2 Esophageal obstruction (principal); K21.9 Gastro-esophageal reflux disease without esophagitis; R26.89 Other abnormalities of gait and mobility; G25.0 Essential tremor; I73.00 Raynaud's syndrome without gangrene | CPT/HCPCS: 99213 ==

== ENCOUNTER 2023-11-29 09:50 | Day surgery (SDC) | payer MEDICARE, SELFPAY ==
--- NOTE | 2023-11-29 08:20 | W.ANESPRE ---
General Info Date of Service Date Performed: 11/29/23 Height: 5 ft 7 in Weight: 76.657 kg Body Mass Index (BMI): 26.4 Surgical Procedure: Operation Date: 11/29/23 10:50 Proposed Procedure Side Surgeon p Gastroscopy with Dilation Estefany Watson, Meds Allergies and Home Medications Allergies Allergy/AdvReac Type Severity Reaction Status Date / Time soy AdvReac Mild sneezing Verified 11/25/23 14:26 Home Medication Medication Instructions Recorded propranolol 60 mg capsule,24 60 mg PO DAILY 01/18/17 hr,extended release Eye Promise Restore 1 cap PO DAILY 01/19/17 cholecalciferol (vitamin D3) 25 25 mcg PO DAILY 04/02/22 mcg (1,000 unit) capsule cyanocobalamin (vitamin B-12) 1 tab PO DAILY 04/02/22 lisinopril 2.5 mg tablet 2.5 mg PO DAILY 04/02/22 magnesium oxide 500 mg capsule 500 mg PO DAILY 04/02/22 omeprazole 40 mg capsule,delayed 40 mg PO DAILY 04/27/22 release memantine 10 mg tablet 10 mg PO BID #180 tabs 07/12/23 Current Visit Medications: Current Medications Generic Name Dose Route Start Last Admin Trade Name Freq PRN Reason Stop Dose Admin Ringer's Solution 1,000 mls @ 80 mls/hr 11/29/23 06:00 IV 11/29/23 23:59 INFUSION YVONNE IV Miscellaneous Supplies 1 each 11/29/23 06:00 Iv Access IV 11/29/23 23:59 DIRECTED YVONNE Ondansetron HCl 4 mg 11/29/23 09:24 Ondansetron 4 Mg/2 Ml Vial IVP 12/29/23 09:23 Q4H PRN PRN Nausea / Vomiting Sodium Chloride 0 ml 11/29/23 06:00 Normal Saline Flush 10 Ml Syr IV 11/29/23 23:59 PRN PRN Sodium Chloride 0 ml 11/29/23 06:00 Normal Saline 10 Ml Vial IJ 11/29/23 23:59 DIRECTED PRN Sterile Water 0 ml 11/29/23 06:00 Water,Injection,Sterile 10 Ml Vial IJ 11/29/23 23:59 DIRECTED PRN PFSH Active Problems Active Problems: Problem Status Onset Code Schatzki's ring of distal esophagus K22.2 Mouth ulcer K12.1 Mild anemia D64.9 Esophageal stricture K22.2 Osteoarthritis of left knee M17.12 Nonspecific paroxysmal spell R40.4 Memory loss R41.3 Dysarthria R47.1 Primary osteoarthritis of right knee 18 M17.11 Osteoarthritis M19.90 Loss of balance R26.89 Alcohol use Z72.89 Dysphagia, pharyngeal phase R13.13 Essential tremor G25.0 Imbalance R26.89 Medical History Medical History Loose stools Rosacea Pulmonary fibrosis Erectile dysfunction Benign essential hypertension GERD (gastroesophageal reflux disease) Mild cognitive impairment, so stated Hypertension Cataract Osteoarthritis of right knee Hyperlipidemia Macular degeneration Surgical History Surgical History History of esophagogastroduodenoscopy (~04/2023) S/P cataract extraction Tobacco Smoking/Tobacco Use Status: Former Tobacco Use Alcohol Alcohol Intake: current Alcohol intake frequency: 0-2 drinks per day Alcohol type: wine Substance Use Substance use: Never Substance use type: does not use Vital Signs and Lab Results Vital Signs Most Recent Vital Signs in EMR: Temp Pulse Resp BP Pulse Ox 35.6 C L 54 L 16 157/75 H 99 11/29/23 09:56 11/29/23 09:56 11/29/23 09:56 11/29/23 09:56 11/29/23 09:56 Lab Results Blood Type / Crossmatch: No Data to Display Complete Blood Count: No Data to Display Complete Metabolic Panel: No Data to Display Liver Function Panel: No Data to Display Coagulation Panel: No Data to Display Cardiac Panel: No Data to Display Arterial Blood Gas: No Data to Display Venous Blood Gas: No Data to Display Pancreas Panel: No Data to Display Thyroid Panel: No Data to Display Infectious Disease: No Data to Display Blood Cultures: No Data to Display Toxicology Panel: No Data to Display Imaging and Studies Imaging and Studies Study information below may be from another EMR and interpreted by another provider. Please see original notes in EMR for more complete details. EKG Summary: 11/18 Conclusion Sinus rhythm...normal P axis, V-rate 60- 99 Left anterior fascicular block...axis(240,-40), init forces inf Anesthesia Assessment and Plan Anesthesia History Personal History: No History of Anesthesia Complications Family History: No Family History of Anesthesia Complications Exercise Tolerance Exercise Tolerance: Metabolic Equivalents<4 Cardiac & Pulmonary Exam Cardiac Exam: Normal S1/S2 Heart Sounds Pulmonary Exam: Clear Bilateral Breath Sounds Implantable Cardiac Device Does patient have a Pacemaker or an ICD?: No Airway Exam Known Difficult Airway: No Mallampati Class: 2 Mouth Opening: Normal (> 3cm) Thyromental Distance: Greater than 3 cm Neck Range of Motion: Full ROM Neck Circumference: Normal Teeth Condition: Normal Dentition ASA Classification ASA Score: ASA 2 Emergency Case?: No NPO Status NPO Status: NPO Clears >2 hours, Solids >8 hours Anesthesia Plan Resuscitation Status: Full Code Anesthesia Technique: General Anesthesia Airway Planned: Natural Airway Monitors Used: Standard Monitors Preoperative Comments:: 83 yo male for EGD. Sig PMHx: HTN, GERD/eso stricture, tremor (propranolol), memory loss, former smoker (1982), occ EtOH. Previous Anes: - EGD, prop, natural airway, no issues.
[2023-11-29 09:55] VITALS: BP 157/75; PULSE 54; RESP 16; TEMP 35.6; O2SAT 99
[2023-11-29 10:16] VITALS: BMI 26.4
[2023-11-29] MEDS: Lactated Ringers 1,000 ML 80 ML IV (10:24)
--- NOTE | 2023-11-29 11:21 | STOM_PTH ---
PATIENT: Abelino Clements LOC: [facility] U#:[id number] AGE/SX: 83/M ROOM: RE11/29/[address]: Estefany Watson : 1940 BED: DIS: 11/29/2023 SPEC #: [id number] RECD: 11/29/23 12:56 STATUS: GHAZAL RE #: [id number] PELON: 11/29/23 11:[address]: Estefany Watson DEPT: Surgical Specimen RECD BY: Elena Frederick ENTERED: 11/29/23 12:56 SP TYPE: STOMACH OTHR DR: Valdez Barriga Tissues: 1 - STOMACH BIOPSY Procedures: GROSS AND MICRO LEVEL 4 Comments: [id number]
[2023-11-29 11:46] VITALS: BP 140/78; PULSE 63; RESP 18; TEMP 36.1; O2SAT 98
--- NOTE | 2023-11-29 11:52 | ENDO_ITS ---
Date of service: 11/29/23 Time of Service: 11:52 Endoscopy Report DATE OF PROCEDURE: 11/29/23 PRE-OP DIAGNOSIS: Benign esophageal stricture/reflux/Schatzki's ring POST-OP DIAGNOSIS: same (Plus moderate gastritis) SURGEON: Estefany Watson ANESTHESIA TYPE: General LMA/ETT ESTIMATED BLOOD LOSS: 3 PATHOLOGY: other COMPLICATIONS: None DISPOSITION: same day PROCEDURE DESCRIPTION: After informed consent was obtained the patient was take to the procedure room and placed in a supine position. Monitors were applied and a time out was done. The patients name, date of , procedure type, allergies to medications and metal in their body was reviewed. A bite block was placed and the patient was sedated. Once sedated and comfortable the gastroscope was advanced through the oropharynx which was grossly normal into the esophagus. The proximal and mid- esophagus were normal. He does have is Schatzki's ring at the GE junction. A 2 cm above the GE junction there is a narrowing of the esophagus at the distal esophagus/GE junction. This is roughly the diameter of the scope. There is no esophagitis. There is no tumors or masses. There are no varices.. The scope was advanced into the stomach and through the pylorus into the 3rd portion of the duodenum. The duodenum was noted to be normal. The scope was retracted back into the stomach and biopsies were done of the antrum.. he does have a mild to moderate gastritis radiating out from the antrum in a striped fashion. There is no signs of any active bleeding. There is no masses or polyps. There are no ulcers. The scope was retroflexed. The cardia and fundus were noted to be normal. There is no hiatal hernia noted. The GE junction was at 38 cm. The GE junction/distal esophagus is dilated with a 20 cm with the balloon for 2 passes of 2 minutes each. The area was revisualize after the dilation. There is no bleeding or tearing noted. Patient tolerated the procedure well without complications the scope was removed and the patient was woken up and taken back to [facility] in stable condition.
--- NOTE | 2023-11-29 11:59 | W.PM.DSUDISC ---
Date of service: 11/29/23 Time of Service: 11:59 Discharge Plan Disposition Patient Disposition: Home Condition: Good Discharge Details Attending Provider: Estefany Watson Primary Care Provider: Valdez Barriga Home Meds and New Rx's Prescriptions: New pantoprazole [Protonix] 40 mg tablet,delayed release (DR/EC) 40 mg PO DAILY Qty: 90 4RF Continued lisinopril 2.5 mg tablet 2.5 mg PO DAILY magnesium oxide 500 mg capsule 500 mg PO DAILY Hold Instructions: Resume on 05/29/23. cholecalciferol (vitamin D3) 25 mcg (1,000 unit) capsule 25 mcg PO DAILY Hold Instructions: Resume on 06/02/23. cyanocobalamin (vitamin B-12) Tablet,Chewable 1 tab PO DAILY Hold Instructions: Resume on 05/29/23. Rx Instructions: 1000 mcg memantine 10 mg tablet 10 mg PO BID Qty: 180 3RF propranolol 60 MG capsule,extended release 24 hr 60 mg PO DAILY Eye Promise Restore 1 cap PO DAILY Discontinued omeprazole 40 mg capsule,delayed release(DR/EC) 40 mg PO DAILY Discharge Instructions Additional Instructions: Your Recovery after Esophageal Dilation You had an esophageal dilation. This procedure can open up narrow areas of the esophagus. After the procedure, you will stay at the hospital for a few hours. This will allow the medicine to wear off. You will be able to go home after your healthcare team checks to make sure that you are not having any problems. This care sheet gives you a general idea about how long it will take for you to recover. But each person recovers at a different pace. Follow the steps below to get better as quickly as possible. How can you care for yourself at home? Activity ? Rest after you go home. ? You should be able to go back to your usual activities the day after the procedure/in 24 hrs. Diet ? Drink plenty of fluids ? Liquids and soft foods only for the next 24 hrs (soups/yogurt/applesauce.? NO meats/breads/rice/noodles/raw fruit& veg) Medicines ? Resume all your medications today. I did change your omeprazole to pantoprazole. ?No alcohol or caffeine for 24 hours. No aspirin/NSAIDs for 5 days ? If you have a sore throat the day after the procedure, use an [id number] spray to numb your throat. Sucking on throat lozenges and gargling with warm salt water may also help relieve your symptoms. Follow-up care is a greenberg part of your treatment and safety.?Be sure to make and go to all appointments, and call your doctor if you are having problems. It's also a good idea to know your test results and keep a list of the medicines you take. F/u in 2-4 wks When should you call for help? Call?911?anytime you think you may need emergency care. For example, call if: ? You passed out (lost consciousness). ? You have trouble breathing. ? Your stools have a dark red colour or are very bloody. Call your doctor or [facility] at [phone] now?or seek immediate medical care if: ? You have new or worse belly pain. ? You have a fever. ? You have new or more blood in your stools. ? You are sick to your stomach or cannot drink fluids. ? You cannot pass stools or gas. ? You have pain that does not get better after you take pain medicine. Watch closely for changes in your health, and be sure to contact your doctor or [facility] at [phone] if: ? Your throat still hurts after a day or two. ? You do not get better as expected. Stand Alone Forms: Anesthesia Discharge Inst., Juanjo June ([facility]) Referrals: Estefany Watson DO [OSTEOPATHIC DOCTOR] - 12/12/23 1:00 pm Activity:: see [email or web address] Diet:: liquids for the next 24 hrs Discharge Orders Discharge Orders: Discharge Order (Routine); Ordered 11/29/23 Ordered By: Estefany Watson DS: Diagnosis Discharge Diagnosis (1) Schatzki's ring of distal esophagus: Status: Acute (2) Esophageal stricture: Status: Acute (3) Osteoarthritis of left knee: Status: Acute (4) Osteoarthritis: Status: Chronic (5) Alcohol use: Status: Acute (6) Dysphagia, pharyngeal phase: Status: Acute (7) Imbalance: Status: Acute (8) Pulmonary fibrosis: (9) GERD (gastroesophageal reflux disease): (10) Hyperlipidemia:
--- NOTE | 2023-11-29 12:18 | W.ANESPOSTOP ---
Postoperative Evaluation Date, Time and Location Date Performed: 11/29/23 Time Performed: 12:18 Patient Location: Day Surgery Unit Vital Signs Most Recent Imported Vital Signs: Most Recent Vital Signs Temp Pulse Resp BP Pulse Ox 36.1 C L 63 18 140/78 98 11/29/23 11:46 11/29/23 11:46 11/29/23 11:46 11/29/23 11:46 11/29/23 11:46 Pain Score Most Recent Pain Score: Most Recent Pain Score Pain Level 0 11/29/23 11:46 Assessment Mental Status: Awake (Alert & Oriented to Patient Baseline) Airway and Respiratory Function: Patent airway with normal (patient baseline) respiratory exam Cardiovascular Function: Hemodynamically Stable Hydration Status: Adequately Hydrated Nausea & Vomiting: No Nausea or Vomiting Pain: Pt. Denies Any Pain Peripheral Nerve Block: Patient did not receive a nerve block
[2023-11-29 12:19] VITALS: BP 146/78; PULSE 59; RESP 16; TEMP 36.2; O2SAT 100
== END 2023-11-29 12:53 | disposition home or self-care (01) ==
PROVIDERS: PCP Family Medicine; Visit Provider Surgery
PROC: 0D758ZZ Dilation of Esophagus, Via Natural or Artificial Opening Endoscopic (ICD-10-PCS; CPT 43239; principal; 2023-11-29 10:45)
DX: K22.2 Esophageal obstruction (principal); K29.70 Gastritis, unspecified, without bleeding; K31.89 Other diseases of stomach and duodenum
CPT/HCPCS: 43239; 88305; J2704

== ENCOUNTER → 2023-12-12 12:50 | Outpatient (BNVA) | payer MEDICARE, SELFPAY | PROVIDERS: PCP Family Medicine; Referring Provider Family Medicine; Visit Provider Surgery | DX: Z48.815 Encounter for surgical aftercare following surgery on the digestive system (principal); K22.2 Esophageal obstruction; R13.13 Dysphagia, pharyngeal phase; K21.9 Gastro-esophageal reflux disease without esophagitis | CPT/HCPCS: 99212 ==

== ENCOUNTER 2024-01-18 13:28 | Observation (INO) | payer MEDICARE, SELFPAY ==
[2024-01-18 13:32] VITALS: BP 156/80; PULSE 59; RESP 16; TEMP 36.3; O2SAT 99
--- NOTE | 2024-01-18 13:39 | ED.GENADUL_ITS ---
HPI General Date/Time Provider Initiated Documentation: 01/18/24 13:39 . HPI Narrative: MDM This is an overall very well-appearing afebrile not tachycardic 84-year-old male with history of Schatzki's ring now with dysphagia concerning for recurrent esophageal stricture for which patient will likely benefit from dilation with general surgery. No pain or proportion to suggest necrotizing soft tissue infection. No sore throat to suggest retropharyngeal abscess. Similarly doubt peritonsillar abscess. Patient is nontoxic-appearing to doubt epiglottitis. No chest pain nor history of forceful emesis to suggest increased risk for esophageal rupture so did not think that the patient required a CT scanning of her chest. No chest pain to suggest ACS I did not obtain an ECG. Will obtain labs in the event that patient is to undergo sedation with anesthesia. Will keep patient NPO. I reached out to general surgery. 4 PM I spoke with the patient after speaking with Dr. Iyer. Dr. Iyer advised that the patient could either trial a barium swallow test and potentially be discharged if he was able to tolerate this test otherwise patient could be hospitalized and made n.p.o. at midnight for EGD in the morning tomorrow. I met with the patient and his . He was not comfortable going home. As result Dr. Iyer will placed hospitalization orders. Chronic conditions affecting the care of the patient: Esophageal strictures History obtained from an outside historian: Patient's External record review: N/A Medications: N/A Social determinants of health affecting disposition: N/A Management discussed with: General surgery Treatment/interventions considered: N/A Response to therapies provided: N/A HPI This is an 84-year-old male with a history of dysphagia and Schatzki's ring with esophageal stricture ride to the emergency department with his via private vehicle in setting of being unable to swallow since this morning. Patient has had esophageal dilatation within the past month with Dr. Watson. He reports he was able to eat breakfast this morning. Late morning he noticed a tightness in his throat. He went to lunch and was unable to swallow. He drinks several drinks of wine per day denies routine tobacco and . Exam General: Well-appearing in no acute distress speaking in complete sentences. Head: Normocephalic, atraumatic. Eye: Extraocular eye movements intact. No conjunctival injection. No scleral icterus. Ear, nose, mouth, throat: Grossly normal inspection. Normal voice, handling secretions normally. Neck: Trachea midline. Cardiovascular: Well-perfused distal extremities. Regular rate and rhythm Respiratory: Nonlabored respiration. Clear lungs bilaterally Gastrointestinal: Nondistended abdomen. Musculoskeletal: No edema. Moving all 4 extremities spontaneously. Skin: Normal for age and race, grossly normal temperature and turgor. No acute rash. Neurologic: Alert and appropriate, no apparent acute deficits. Psychiatric: Mood and manner are appropriate. Grooming and personal hygiene are appropriate. Related Data Home Medications Medication Instructions Recorded Confirmed propranolol 60 mg capsule,24 60 mg PO DAILY 01/18/17 01/18/24 hr,extended release Eye Promise Restore 1 cap PO DAILY 01/19/17 01/18/24 cholecalciferol (vitamin D3) 25 25 mcg PO DAILY 04/02/22 01/18/24 mcg (1,000 unit) capsule cyanocobalamin (vitamin B-12) 1 tab PO DAILY 04/02/22 01/18/24 lisinopril 2.5 mg tablet 2.5 mg PO DAILY 04/02/22 01/18/24 magnesium oxide 500 mg capsule 500 mg PO DAILY 04/02/22 01/18/24 memantine 10 mg tablet 10 mg PO BID #180 tabs 07/12/23 01/18/24 pantoprazole 40 mg tablet,delayed 40 mg PO DAILY #90 tabs 11/29/23 01/18/24 release (Protonix) Previous Rx's Medication Instructions Recorded memantine 10 mg tablet 10 mg PO BID #180 tabs 07/12/23 pantoprazole 40 mg tablet,delayed 40 mg PO DAILY #90 tabs 11/29/23 release (Protonix) Allergies Allergy/AdvReac Type Severity Reaction Status Date / Time soy AdvReac Mild sneezing Verified 01/18/24 14:03 General Stated Complaint: GenMedical TORIBIO: 3 Course Vital Signs Vital signs: Vital Signs Temperature 36.3 C L 01/18/24 13:32 Pulse 59 L 01/18/24 13:32 Respiratory Rate 16 01/18/24 13:32 Blood Pressure 156/80 H 01/18/24 13:32 Pulse Oximetry 99 01/18/24 13:32 Temperature 36.3 C L 01/18/24 13:32 Temperature Source Temporal Artery Scan 01/18/24 13:32 Pulse 59 L 01/18/24 13:32 Respiratory Rate 16 01/18/24 13:32 Blood Pressure 156/80 H 01/18/24 13:32 Pulse Oximetry 99 01/18/24 13:32 Oxygen Delivery Method Room Air 01/18/24 13:32 Oxygen Flow Rate 0 01/18/24 13:32 Medical Decision Making Quality:SDOH Health Related Social Needs: No Data to Display PFSH All Active Problems (Updated 01/18/24 @ 21:27 by Valdez Dunn MD) Dysphagia (Acute) Schatzki's ring of distal esophagus (Acute) Mouth ulcer (Acute) Mild anemia (Acute) Esophageal stricture (Acute) Osteoarthritis of left knee (Acute) Nonspecific paroxysmal spell (Acute) Memory loss (Acute) Dysarthria (Acute) Primary osteoarthritis of right knee (Acute 02/10/18) Osteoarthritis (Chronic) Loss of balance (Acute) Alcohol use (Acute) Dysphagia, pharyngeal phase (Acute) Essential tremor (Acute) Imbalance (Acute) Medical History Loose stools Rosacea Pulmonary fibrosis Erectile dysfunction Benign essential hypertension GERD (gastroesophageal reflux disease) Mild cognitive impairment, so stated Hypertension Cataract Osteoarthritis of right knee Hyperlipidemia Macular degeneration Surgical History History of esophagogastroduodenoscopy (~2023) S/P cataract extraction Family History Father Heart disease Mother Breast cancer Social History Smoking/Tobacco Use Status: Former Tobacco Use Quit Date: 11/28/82 Smoking risk assessment performed?: Yes Alcohol Intake: current Alcohol Intake frequency: 0-2 drinks per day Alcohol type: wine Drug use: Never Substance use type: does not use Household members: spouse Housing: house Number of Children: 3 number of grandchildren: 6 What is your relationship status?: Panel score (0-1 are the most socially isolated patients): 1 Seatbelt use: always Do you feel safe at home: Yes Do you feel safe in your relationship?: Yes Discharge Plan Disposition Patient Disposition: [facility]mit to [facility] Discharge Details Chief Complaint: GenMedical Clinical Impression: Dysphagia Primary Care Provider: Valdez Barriga ED Provider: Provider,Temporary Home Meds and New Rx's Prescriptions: No Action lisinopril 2.5 mg tablet 2.5 mg PO DAILY magnesium oxide 500 mg capsule 500 mg PO DAILY Hold Instructions: Resume on 05/29/23. cholecalciferol (vitamin D3) 25 mcg (1,000 unit) capsule 25 mcg PO DAILY Hold Instructions: Resume on 06/02/23. cyanocobalamin (vitamin B-12) Tablet,Chewable 1 tab PO DAILY Hold Instructions: Resume on 05/29/23. Rx Instructions: 1000 mcg memantine 10 mg tablet 10 mg PO BID Qty: 180 3RF pantoprazole [Protonix] 40 mg tablet,delayed release (DR/EC) 40 mg PO DAILY Qty: 90 4RF propranolol 60 MG capsule,extended release 24 hr 60 mg PO DAILY Eye Promise Restore 1 cap PO DAILY
[2024-01-18 13:59] VITALS: BP 156/80; PULSE 59; RESP 16; TEMP 36.3; O2SAT 99
[2024-01-18 14:01] LABS: Abs Immature Grans 0.06 10^3/uL (0.0-0.06); Absolute Basophil Count 0.05 10^3/uL (0.0-0.2); Absolute Eosinophil Count 0.12 10^3/uL (0.0-0.7); Absolute Lymphocyte Count 1.29 10^3/uL (1.2-3.4); Absolute Monocyte Count 0.78 10^3/uL (0.1-0.8); Absolute Neutrophil Count 4.68 10^3/uL (1.2-6.7); Basophils % 0.7; Eosinophils % 1.7; HCT 41.4 % (40.0-50.0); HGB 13.9 g/dL (13.5-17.5); Immature Grans % 0.9; Lymphocytes % 18.5; MCH 31.5 pg (27.0-33.0); MCHC 33.6 % (32.0-36.0); MCV 94 fL (80-95); MPV 9.5 fL (8.0-11.0); Monocytes % 11.2; Platelet Count 177 10^3/uL (130-400); RBC 4.41 10^6/uL (4.36-5.78); RDW 13.4 % (11.8-14.1); RDW-SD 46.2 fL; WBC 6.98 10^3/uL (4.4-10.8)
[2024-01-18 14:16] LABS: Anion Gap 8.3 mmol/L (3-11); BUN 16 mg/dL (7-18); CO2 28.7 mmol/L (21.0-32.0); Calcium 8.8 mg/dL (8.5-10.1); Chloride 101 mmol/L (98-107); Estimated GFR 75.14 (mL/min/1.73m2); Glucose 99 mg/dL (74-106); Potassium 4.4 mmol/L (3.5-5.1); Sodium 138 mmol/L (136-145)
--- NOTE | 2024-01-18 14:26 | W.PM.HP.N ---
Date of service: 01/18/24 Time of Service: 14:27 Assessment and Plan Assessment and plan (1) Schatzki's ring of distal esophagus: Status: Acute Assessment and plan: I had Daniele yung to swallow a little bit of liquid here in the emergency department. He is able to drink some water from a cup as well as a straw. It appears that he initiate swallow without much difficulty. Just a few seconds after swallowing, he does have a nonproductive cough. There is no change in his voice. No retching or vomiting. The source of his dysphagia is obviously challenging and bit complicated. Given the location that he describes the discomfort, it seems quite high to attribute to the Schatzki's ring. Additionally, the coughing that he experiences very quickly after swallowing make me suspect that this is more of a pharyngeal or hypopharyngeal problem, although I suppose it is possible that he still has a column of fluid sitting above the Schatzki's ring. For now, we will keep him n.p.o. overnight, and plan for an EGD tomorrow. If the EGD is reassuring, then that would lend credence to the idea that this is really more of an upper esophageal or pharyngeal swallowing problem as opposed to a distal obstruction of the esophagus. At that point, he may benefit from another evaluation by speech and swallow pathologist, or perhaps a modified barium swallow for discharge. History of Present Illness History of Present Illness Chief Complaint: Dysphagia Narrative: Abelino is 84 years old. His medical history includes Parkinson's disease, and dysphagia. He also seems to have some mild dementia which makes it difficult for him to recall other medical history relevant to his presentation today. Given to the emergency department because of the acute onset of dysphagia. He says he awoke from sleep as usual, and had a normal breakfast. He denies any difficulty swallowing any bit of his breakfast. He was making arrangements for a lunch date with some friends, when he started to notice a sense of fullness in his throat. In his words, he felt like he had a lot of mucus, and things building up. He thinks this might be similar to some symptoms he is experienced in the past. He tells me that he underwent an EGD in November, and that during the procedure, his esophagus had to be stretched out. By way of the medical records, it is correct that he underwent EGD in early November of this year with a distal stricture of the esophagus that was consistent with a Schatzki's ring. He underwent dilation to what I suspect was 20 mm based on the records. He was seen in the office after that with no residual symptoms. Medical records also indicate that he underwent EGD with dilation in April 2023. That procedure followed a visit to the emergency department where he had symptoms of a globus sensation, and painful dysphagia. There is also evidence of esophageal pathology dating back to 2013, when he underwent an EGD at that time as well. He has also undergone an esophagram that supported the diagnosis of a Schatzki's ring. It appears that he has also been seen by speech and swallow therapist on multiple occasions for complex dysphagia. Since his presentation to the emergency department earlier today, he says that his symptoms have resolved. Review of Systems Constitutional Constitutional: Reports anorexia, Denies difficulty sleeping, Denies fever(s), Reports frequent falls, Denies poor appetite and Denies weight loss Eyes Eyes: Reports system reviewed and no additional complaints, except as documented ENT Ears, Nose, Mouth, and Throat: Denies halitosis, Denies change in voice, Denies dental pain, Reports hearing loss, Denies hoarseness, Denies nasal congestion, Denies nasal discharge and Reports disequilibrium Cardiovascular Cardiovascular: Denies chest pain and Denies dyspnea Respiratory Respiratory: Denies chest congestion, Denies cough, Reports excessive phlegm production and Denies dyspnea Gastrointestinal Gastrointestinal: Denies abdominal pain, Denies belching, Denies bloating, Denies change in stool character, Denies nausea and Denies vomiting Genitourinary Genitourinary: Reports system reviewed and no additional complaints, except as documented Musculoskeletal Musculoskeletal: Reports system reviewed and no additional complaints, except as documented Neurologic Neurologic: Reports confusion, Reports frequent falls, Reports memory loss and Reports disequilibrium Psychiatric Psychiatric: Reports confusion and Reports memory loss Endocrine Endocrine: Denies deepening of the voice Hematologic/Lymphatic Hematologic/Lymphatic: Denies easy bleeding and Denies easy bruising PFSH All Active Problems Schatzki's ring of distal esophagus (Acute) Mouth ulcer (Acute) Mild anemia (Acute) Esophageal stricture (Acute) Osteoarthritis of left knee (Acute) Nonspecific paroxysmal spell (Acute) Memory loss (Acute) Dysarthria (Acute) Primary osteoarthritis of right knee (Acute 02/10/18) Osteoarthritis (Chronic) Loss of balance (Acute) Alcohol use (Acute) Dysphagia, pharyngeal phase (Acute) Essential tremor (Acute) Imbalance (Acute) Medical History Loose stools Rosacea Pulmonary fibrosis Erectile dysfunction Benign essential hypertension GERD (gastroesophageal reflux disease) Mild cognitive impairment, so stated Hypertension Cataract Osteoarthritis of right knee Hyperlipidemia Macular degeneration Surgical History History of esophagogastroduodenoscopy (~2023) S/P cataract extraction Family History Father Heart disease Mother Breast cancer Social History Smoking/Tobacco Use Status: Former Tobacco Use Quit Date: 11/28/82 Smoking risk assessment performed?: Yes Alcohol Intake: current Alcohol Intake frequency: 0-2 drinks per day Alcohol type: wine Drug use: Never Substance use type: does not use Household members: spouse Housing: house Number of Children: 3 number of grandchildren: 6 What is your relationship status?: Panel score (0-1 are the most socially isolated patients): 1 Seatbelt use: always Do you feel safe at home: Yes Do you feel safe in your relationship?: Yes Meds Allergies and Home Medications Allergies Allergy/AdvReac Type Severity Reaction Status Date / Time soy AdvReac Mild sneezing Verified 01/18/24 14:03 Home Medications Medication Instructions Recorded Confirmed Type propranolol 60 mg capsule,24 60 mg PO DAILY 01/18/17 01/18/24 History hr,extended release Eye Promise Restore 1 cap PO DAILY 01/19/17 01/18/24 History cholecalciferol (vitamin D3) 25 25 mcg PO DAILY 04/02/22 01/18/24 History mcg (1,000 unit) capsule cyanocobalamin (vitamin B-12) 1 tab PO DAILY 04/02/22 01/18/24 History lisinopril 2.5 mg tablet 2.5 mg PO DAILY 04/02/22 01/18/24 History magnesium oxide 500 mg capsule 500 mg PO DAILY 04/02/22 01/18/24 History memantine 10 mg tablet 10 mg PO BID #180 tabs 07/12/23 01/18/24 Rx pantoprazole 40 mg tablet,delayed 40 mg PO DAILY #90 tabs 11/29/23 01/18/24 Rx release (Protonix) Exam Const General: cooperative, healthy appearing and comfortable Nutritional Appearance: average body habitus Orientation: alert, awake and oriented x3 HENMT Head: normal to inspection Mouth: oral mucosae normal Teeth and gingiva: dentition normal Eyes General: appearance normal, both eyes and all related structures Neck Neck: normal visual inspection, full ROM, no lymphadenopathy, trachea midline, supple and no lymphadenopathy noted Thyroid: thyroid normal Resp Effort & Inspection: normal respiratory effort Auscultation: clear to auscultation bilaterally Cardio Rate: regular rate Rhythm: regular rhythm Heart Sounds: S1 normal and S2 normal GI Inspection: normal to inspection Palpation: soft, no guarding and nontender Auscultation: normal bowel sounds Results Labs 01/18/24 13:55 01/18/24 13:55 Labs: Laboratory Results - last 24 hr 01/18/24 13:55 WBC 6.98 RBC 4.41 Hgb 13.9 Hct 41.4 MCV 94 MCH 31.5 MCHC 33.6 RDW 13.4 Plt Count 177 MPV 9.5 Immature Gran % 0.9 Neutrophils % 67.0 Lymphocytes % 18.5 Monocytes % 11.2 Eosinophils % 1.7 Basophils % 0.7 Nucleated RBC % 0.0 Absolute Neutrophils 4.68 Absolute Lymphocytes 1.29 Absolute Monocytes 0.78 Absolute Eosinophils 0.12 Absolute Basophils 0.05 Sodium 138 Potassium 4.4 Chloride 101 Carbon Dioxide 28.7 Anion Gap 8.3 BUN 16 Creatinine 1.0 Est GFR (CKD-EPI 2020) 75.14 Glucose 99 Calcium 8.8 Last Vital Signs Temp 97.3 F L 01/18/24 13:59 Pulse 59 L 01/18/24 13:59 Resp 16 01/18/24 13:59 BP 156/80 H 01/18/24 13:59 Pulse Ox 99 01/18/24 13:59 PAWSS Have you Been Recently Intoxicated or Drunk Within the Last 30 days?: No Have you Ever Experienced Previous Episodes of Alcohol Withdrawal?: No Have you ever Experienced Withdrawal Seizures?: No Have you ever Experienced Delirium Tremens(DT)s?: No Have you ever undergone Alcohol Rehabilitation Treatment (i.e, inpt ot outpatient treatment programs)?: No Have you ever Experienced Blackouts?: No Have you ever Combined Alcohol with other Downers within the last 90 days?: No Have you ever Combined Alcohol with any other Substance of Abuse during the last 90 days?: No Positive Blood Alcohol level on Presentation? [PCS.BAL]: No Evidence of Increased Autonomic Activity (i.e. HR>120, tremor, sweating, agitation, nausea)?: No Result: 0 Time Spent Time spent with Patient: 55-74 minutes Time was spent: preparing to see the patient(eg.review tests), obtaining and/or reviewing separately otained hiistory, ordering medications,tests, procedures, indepentently interpreting results and counseling the patient
--- NOTE | 2024-01-18 14:45 | DI.RAD_ITS ---
Exam(s) XR CHEST 2V PA LATERAL EXAM: XR CHEST 2V PA LATERAL CLINICAL HISTORY: dysphagia TECHNIQUE: 2D digital imaging was performed of the chest. Two images were obtained. PA and lateral views were obtained. COMPARISON: CR XR CHEST 2V PA LATERAL from 05/22/2021 FINDINGS: MEDIASTINUM: Normal. HEART: Normal. PULMONARY VASCULATURE: Normal. LUNGS: Clear. PLEURAL SPACE: No pleural effusion or pneumothorax. BONE:Within normal limits for the patient's age. OTHER FINDINGS:Normal. IMPRESSION: No acute pulmonary findings. DATA REPOSITORY: RADIATION DOSE DELIVERED:
[2024-01-18 15:37] VITALS: BP 156/76; PULSE 67; RESP 13; TEMP 36.8; O2SAT 98
[2024-01-18 21:42] VITALS: PULSE 64; O2SAT 97
[2024-01-19] VITALS (14 sets, daily range): BP systolic 135–170; BP diastolic 77–96; PULSE 59–72; RESP 12–20; TEMP 36–37.1; O2SAT 97–100; BMI 25.0
[2024-01-19] MEDS: Lactated Ringers 1,000 ML 75 ML IV ×2 (09:58→11:25)
[2024-01-19] MEDS: Enoxaparin 40 MG/0.4 ML SYR SC (09:59)
--- NOTE | 2024-01-19 10:33 | W.PM.PROGNOT ---
Date of Service Date of service: 01/19/24 Time of Service: 10:33 Assessment and Plan Assessment and plan (1) Dysphagia: Status: Acute Assessment and plan: await EGD today per Dr. Iyer hopeful d/c home later today or in the am Qualifiers: Dysphagia type: unspecified Qualified Code(s): R13.10 - Dysphagia, unspecified Subjective Subjective Patient reports: no new complaints and feels better Interval history since last seen: patient sitting in chair with family at bedside. no new complaints. feels swallowing in better today. Exam Neck Neck: normal visual inspection, trachea midline and supple Other: normal swallowing with palpation GI Inspection: normal to inspection Palpation: soft Other: nontender Objective Last Vital Signs Temp 97.2 F L 01/19/24 08:38 Pulse 60 01/19/24 08:38 Resp 18 01/19/24 08:38 BP 156/82 H 01/19/24 08:38 Pulse Ox 99 01/19/24 08:38 Laboratory Results - last 24 hr 01/18/24 13:55 WBC 6.98 RBC 4.41 Hgb 13.9 Hct 41.4 MCV 94 MCH 31.5 MCHC 33.6 RDW 13.4 Plt Count 177 MPV 9.5 Immature Gran % 0.9 Neutrophils % 67.0 Lymphocytes % 18.5 Monocytes % 11.2 Eosinophils % 1.7 Basophils % 0.7 Nucleated RBC % 0.0 Absolute Neutrophils 4.68 Absolute Lymphocytes 1.29 Absolute Monocytes 0.78 Absolute Eosinophils 0.12 Absolute Basophils 0.05 Sodium 138 Potassium 4.4 Chloride 101 Carbon Dioxide 28.7 Anion Gap 8.3 BUN 16 Creatinine 1.0 Est GFR (CKD-EPI 2020) 75.14 Glucose 99 Calcium 8.8 Reviewed Pertinent PMH: Yes PAWSS Have you Been Recently Intoxicated or Drunk Within the Last 30 days?: No Have you Ever Experienced Previous Episodes of Alcohol Withdrawal?: No Have you ever Experienced Withdrawal Seizures?: No Have you ever Experienced Delirium Tremens(DT)s?: No Have you ever undergone Alcohol Rehabilitation Treatment (i.e, inpt ot outpatient treatment programs)?: No Have you ever Experienced Blackouts?: No Have you ever Combined Alcohol with other Downers within the last 90 days?: No Have you ever Combined Alcohol with any other Substance of Abuse during the last 90 days?: No Positive Blood Alcohol level on Presentation? [PCS.BAL]: No Evidence of Increased Autonomic Activity (i.e. HR>120, tremor, sweating, agitation, nausea)?: No Result: 0 Time Spent with Patient Time Spent with Patient: <25 minutes Time was spent: preparing to see the patient(eg.review tests), obtaining and/or reviewing separately otained hiistory and counseling the patient
--- NOTE | 2024-01-19 11:10 | ANES.PREOP_ITS ---
General Info Date of Service Date Performed: 01/19/24 Height: 5 ft 7 in Weight: 72.575 kg Body Mass Index (BMI): 25.0 Surgical Procedure: Operation Date: 01/19/24 10:50 Proposed Procedure Side Surgeon p Gastroscopy Otoniel Iyer MD Meds Allergies and Home Medications Allergies Allergy/AdvReac Type Severity Reaction Status Date / Time soy AdvReac Mild sneezing Verified 01/18/24 14:03 Home Medication Medication Instructions Recorded propranolol 60 mg capsule,24 60 mg PO DAILY 01/18/17 hr,extended release [facility] Promise Restore 1 cap PO DAILY 01/19/17 cholecalciferol (vitamin D3) 25 25 mcg PO DAILY 04/02/22 mcg (1,000 unit) capsule cyanocobalamin (vitamin B-12) 1 tab PO DAILY 04/02/22 lisinopril 2.5 mg tablet 2.5 mg PO DAILY 04/02/22 magnesium oxide 500 mg capsule 500 mg PO DAILY 04/02/22 memantine 10 mg tablet 10 mg PO BID #180 tabs 07/12/23 pantoprazole 40 mg tablet,delayed 40 mg PO DAILY #90 tabs 11/29/23 release (Protonix) Current Visit Medications: Current Medications Generic Name Dose Route Start Last Admin Trade Name Freq PRN Reason Stop Dose Admin Cholecalciferol 1,000 units 01/20/24 08:30 Cholecalciferol (Vitamin D3) 1,000 Unit Tab PO DAILY [facility] Cyanocobalamin 100 mcg 01/19/24 08:30 Cyanocobalamin 100 Mcg Tablet PO DAILY [facility] Enoxaparin Sodium 40 mg 01/19/24 10:00 01/19/24 09:59 Enoxaparin 40 Mg/0.4 Ml Syr SC 40 mg Q24H [facility] Administration Ringer's Solution 1,000 mls @ 75 mls/hr 01/19/24 08:57 01/19/24 09:58 IV 75 mls/hr INFUSION [facility] Administration IV Miscellaneous Supplies 1 each 01/19/24 08:57 Iv Access IV DIRECTED [facility] Lisinopril 2.5 mg 01/19/24 08:57 Lisinopril 2.5 Mg Tab PO DAILY [facility] Magnesium Oxide 400 mg 01/19/24 08:30 Magnesium Oxide 400 Mg Tab PO DAILY [facility] Memantine 10 mg 01/19/24 20:00 Memantine 5 Mg Tab PO BID [facility]ON[facility] Morphine Sulfate 2 mg 01/19/24 08:57 Morphine 2 Mg/Ml Syr IVP Q1H PRN PRN Ondansetron HCl 4 mg 01/19/24 08:57 Ondansetron 4 Mg/2 Ml Vial IVP Q4H PRN PRN Pantoprazole Sodium 40 mg 01/20/24 07:30 Pantoprazole 40 Mg Tabcr PO DAILY@0730 [facility]VONNE Propranolol HCl 60 mg 01/19/24 08:57 Propranolol 60 Mg Capcr PO DAILY [facility]ONNE Sodium Chloride 0 ml 01/19/24 08:57 Normal Saline Flush 10 Ml Syr IVP PRN PRN Sodium Chloride 0 ml 01/19/24 08:57 Normal Saline Flush 10 Ml Syr IVP BID YVONNE Sodium Chloride 0 ml 01/19/24 08:57 Normal Saline 10 Ml Vial IJ DIRECTED PRN PFSH Active Problems Active Problems: Problem Status Onset Code Dysphagia R13.10 Schatzki's ring of distal esophagus K22.2 Mouth ulcer K12.1 Mild anemia D64.9 Esophageal stricture K22.2 Osteoarthritis of left knee M17.12 Nonspecific paroxysmal spell R40.4 Memory loss R41.3 Dysarthria R47.1 Primary osteoarthritis of right knee 02/10/18 M17.11 Osteoarthritis M19.90 Loss of balance R26.89 Alcohol use Z72.89 Dysphagia, pharyngeal phase R13.13 Essential tremor G25.0 Imbalance R26.89 Medical History Medical History Loose stools Rosacea Pulmonary fibrosis Erectile dysfunction Benign essential hypertension GERD (gastroesophageal reflux disease) Mild cognitive impairment, so stated Hypertension Cataract Osteoarthritis of right knee Hyperlipidemia Macular degeneration Surgical History Surgical History History of esophagogastroduodenoscopy (~2023) S/P cataract extraction Tobacco Smoking/Tobacco Use Status: Former Tobacco Use Alcohol Alcohol Intake: current Alcohol intake frequency: 0-2 drinks per day Alcohol type: wine Substance Use Substance use: Never Substance use type: does not use Vital Signs and Lab Results Vital Signs Most Recent Vital Signs in EMR: Most Recent Vital Signs Temp Pulse Resp BP Pulse Ox 36.2 C L 60 18 156/82 H 99 01/19/24 08:38 01/19/24 08:38 01/19/24 08:38 01/19/24 08:38 01/19/24 08:38 Lab Results 01/18/24 13:55 01/18/24 13:55 Blood Type / Crossmatch: 2 No Data to Display Complete Blood Count: 2 White Blood Count 6.98 10^3/uL (4.4-10.8) 01/18/24 13:55 Red Blood Count 4.41 10^6/uL (4.36-5.78) 01/18/24 13:55 Hemoglobin 13.9 g/dL (13.5-17.5) 01/18/24 13:55 Hematocrit 41.4 % (40.0-50.0) 01/18/24 13:55 Platelet Count 177 10^3/uL (130-400) 01/18/24 13:55 Complete Metabolic Panel: 2 Sodium 138 mmol/L (136-145) 01/18/24 13:55 Potassium 4.4 mmol/L (3.5-5.1) 01/18/24 13:55 Chloride 101 mmol/L (98-107) 01/18/24 13:55 Carbon Dioxide 28.7 mmol/L (21.0-32.0) 01/18/24 13:55 BUN 16 mg/dL (7-18) 01/18/24 13:55 Creatinine 1.0 mg/dL (0.70-1.30) 01/18/24 13:55 Est GFR (CKD-EPI 2020) 75.14 (mL/min/1.73m2) 01/18/24 13:55 Calcium 8.8 mg/dL (8.5-10.1) 01/18/24 13:55 Glucose 99 mg/dL (74-106) 01/18/24 13:55 Liver Function Panel: 2 No Data to Display Coagulation Panel: 2 No Data to Display Cardiac Panel: 2 No Data to Display Arterial Blood Gas: 2 No Data to Display Venous Blood Gas: 2 No Data to Display Pancreas Panel: 2 No Data to Display Thyroid Panel: 2 No Data to Display Infectious Disease: 2 No Data to Display Blood Cultures: 2 No Data to Display Toxicology Panel: 2 No Data to Display Imaging and Studies Imaging and Studies Study information below may be from another EMR and interpreted by another provider. Please see original notes in EMR for more complete details. EKG Summary: 11/18 Conclusion Sinus rhythm...normal P axis, V-rate 60- 99 Left anterior fascicular block...axis(240,-40), init forces inf Anesthesia Assessment and Plan Anesthesia History Personal History: No History of Anesthesia Complications Family History: No Family History of Anesthesia Complications Exercise Tolerance Exercise Tolerance: Metabolic Equivalents<4 Pertinent Negatives Pertinent Negatives: No Symptoms of GERD Cardiac & Pulmonary Exam Cardiac Exam: Normal S1/S2 Heart Sounds Pulmonary Exam: Clear Bilateral Breath Sounds Implantable Cardiac Device Does patient have a Pacemaker or an ICD?: No Airway Exam Known Difficult Airway: No Mallampati Class: 2 Mouth Opening: Normal (> 3cm) Thyromental Distance: Greater than 3 cm Neck Range of Motion: Full ROM Neck Circumference: Normal Teeth Condition: Normal Dentition ASA Classification ASA Score: ASA 3 Emergency Case?: No NPO Status NPO Status: NPO Clears >2 hours, Solids >8 hours Anesthesia Plan Resuscitation Status: Full Code Anesthesia Technique: General Anesthesia Airway Planned: Natural Airway Monitors Used: Standard Monitors
--- NOTE | 2024-01-19 11:49 | W.PM.ENDDOP ---
Date of service: 01/19/24 Time of Service: 11:49 Endoscopy Report DATE OF PROCEDURE: 01/19/24 PRE-OP DIAGNOSIS: Dysphagia POST-OP DIAGNOSIS: same (With Schatzki's ring) PROCEDURE: Dilation of Schatzki's ring to 2 cm SURGEON: Otoniel Iyer ANESTHESIA TYPE: General:No Airway ESTIMATED BLOOD LOSS: 10 PATHOLOGY: none sent COMPLICATIONS: None DISPOSITION: PACU INDICATIONS: Abelino is an 84-year-old male with Parkinson's disease, complex dysphagia, and an esophageal Schatzki's ring that required previous dilation on at least 2 occasions. He comes back to the emergency department yesterday with recurrent symptoms PROCEDURE START TIME: 11:32 PROCEDURE END TIME: 11:46 FINDINGS: Esophageal Schatzki's ring PROCEDURE DESCRIPTION: After the initiation of anesthesia, and with the assistance of a bite block, I advanced a standard gastroscope through the mouth past the hypopharynx and into the esophagus.? Under the direct vision of the scope, I advanced down the esophagus towards the stomach.? The upper and midesophagus appeared normal. In the distal esophagus, there is evidence of a Schatzki's ring. However, the lumen seems fairly well-preserved. I am able to navigate across this without much difficulty. I performed retroflexion. There is a grade 1 hiatal hernia. Brief inspection of the stomach was normal. I brought the camera back up to the GE junction, with a regular appearing Z-line around 38 cm from the incisors. Schatzki's ring itself measured about 36 cm from the incisors. It appeared to me that the ring would easily accommodated 20 mm balloon. To that was delivered through the gastroscope and positioned appropriately. The balloon was inflated according to the head inspector's instructions to dilate up to 2 cm. Pressure was maintained for about 20 seconds before deflation. The ring was traversed, examined, and dilation was performed 2 more times in the same exact fashion. There was minimal amount of bleeding from mucosa, without any evidence laceration. After dilation, the stomach was emptied, and the camera was brought back out along the length of the esophagus. Again, no signs of any injury from dilation were observed. Patient was then allowed to wake from anesthesia and transferred to the recovery unit.
--- NOTE | 2024-01-19 11:56 | W.ANESPOSTOP ---
Postoperative Evaluation Date, Time and Location Date Performed: 01/19/24 Time Performed: 11:56 Patient Location: PACU Vital Signs Most Recent Imported Vital Signs: Most Recent Vital Signs Temp Pulse Resp BP Pulse Ox 36.2 C L 60 18 156/82 H 99 01/19/24 08:38 01/19/24 08:38 01/19/24 08:38 01/19/24 08:38 01/19/24 08:38 Pain Score Most Recent Pain Score: Most Recent Pain Score Pain Level 0 01/19/24 08:38 Assessment Mental Status: Awake (Alert & Oriented to Patient Baseline) Airway and Respiratory Function: Patent airway with normal (patient baseline) respiratory exam Cardiovascular Function: Hemodynamically Stable Hydration Status: Adequately Hydrated Nausea & Vomiting: No Nausea or Vomiting Pain: Pt. Denies Any Pain Peripheral Nerve Block: Patient did not receive a nerve block
[2024-01-19] MEDS: Lisinopril 2.5 MG TAB PO (13:21)
[2024-01-19] MEDS: Propranolol 60 MG CAPCR PO (13:21)
[2024-01-19] MEDS: Magnesium Oxide 400 MG TAB PO (13:21)
[2024-01-19] MEDS: Cyanocobalamin 100 MCG TABLET PO (13:22)
--- NOTE | 2024-01-19 15:11 | W.PM.DS.N ---
Date of service: 01/19/24 Time of Service: 15:11 DS: Diagnosis Discharge Diagnosis (1) Dysphagia: Status: Acute Asessment and Plan: outpatient follow up Discharge Plan Disposition Patient Disposition: Home Condition: Good Discharge Details Reason For Visit: Dysphagia Admit Date/Time: 01/18/24 14:47 Admit Provider: Otoniel Iyer Attending Provider: Otoniel Iyer Primary Care Provider: Valdez Barriga [facility] Course: Abelino came to the ED with acute dysphasia similar to symptoms he had experienced prior to EGD with dilation of Schatzkis ring earlier this year. He had trouble managing sips of water on my examination but was otherwise stable. He was admitted overnight and underwent EGD the next day with re-dilation of the ring to 2 cm. He was asymptomatic afterword and able to tolerated thin liquids with no symptoms. He will follow up in the office as an outpatient. Home Meds and New Rx's Prescriptions: Continued lisinopril 2.5 mg tablet 2.5 mg PO DAILY magnesium oxide 500 mg capsule 500 mg PO DAILY Hold Instructions: Resume on 05/29/23. cholecalciferol (vitamin D3) 25 mcg (1,000 unit) capsule 25 mcg PO DAILY Hold Instructions: Resume on 06/02/23. cyanocobalamin (vitamin B-12) Tablet,Chewable 1 tab PO DAILY Hold Instructions: Resume on 05/29/23. Rx Instructions: 1000 mcg memantine 10 mg tablet 10 mg PO BID Qty: 180 3RF pantoprazole [Protonix] 40 mg tablet,delayed release (DR/EC) 40 mg PO DAILY Qty: 90 4RF propranolol 60 MG capsule,extended release 24 hr 60 mg PO DAILY [facility] Restore 1 cap PO DAILY Discharge Instructions Instructions: Esophageal Dilation (DC) Additional Instructions: 1. If tolerated, consume a thin liquids diet no thicker that pudding or ice cream for 1-2 weeks. [address] not drive, drink alcohol, operate machinery, make critical decisions, or do activities that require coordination or balance for 24 hours. 3. You may experience a sore throat for 24 to 48 hours. You may use throat lozenges or gargle with warm salt water to relieve the discomfort. 4. Because air was put into your stomach during the procedure, you may experience some belching. 5. Do not consume alcohol or smoke tobacco. 6. Go directly to the emergency room if you notice any of the following: Develop chills (warm to touch), or if you have a thermometer and your temperature is above 101 Difficulty breathing or difficultly swallowing Persistent vomiting Severe abdominal pain, other than gas cramps Severe chest pain Black, tarry stools Any bleeding ? exceeding one tablespoon 7. Call your physician if the site where your intravenous was started becomes red, swollen, painful, and warm to touch. 8. Your physician has reviewed your pre-procedure medications. Please continue to take those medications as previously ordered. You will be given specific information/education regarding any changes to your medications before leaving. Stand Alone Forms: Nursing Discharge Form Referrals: Otoniel Iyer MD [ [facility] STAFF PHYSICIAN] - 02/09/24 2:15 pm (February 14 at 9:45 AM) Activity:: Activity as Tolerated Equipment/Supplies:: No Equipment Needed Diet:: purreed thin Discharge Orders Discharge Orders: Discharge Order (Routine); Ordered 01/19/24 Ordered By: Otoniel Iyer DS: Summary Time Spent with Patient providing and/or coordinating discharge services: Less than 30 minutes Status at Discharge Functional status at discharge: independent ambulation Overall status at discharge: patient is back to baseline Mental Status: mental status grossly normal Speech and Movement: speech and movement normal Mood: congruent mood Affect: normal affect Quality:SDOH Health Related Social Needs: No Data to Display Exam Resp Effort & Inspection: normal respiratory effort Auscultation: clear to auscultation bilaterally GI Inspection: normal to inspection Palpation: soft and nontender Psych Mental Status: mental status grossly normal Speech and Movement: speech and movement normal Mood: congruent mood Affect: normal affect DS: Data Vitals/I&O Vitals and I&O: Vital Signs Temperature 97.3 F L 01/19/24 14:08 Temperature Source Tympanic 01/19/24 14:07 Pulse 64 01/19/24 14:08 Pulse Rhythm Regular 01/19/24 14:49 Respiratory Rate 14 01/19/24 14:08 Respiratory Effort Normal, Non-Labored 01/19/24 14:49 Respiratory Depth Normal 01/19/24 14:49 Respiratory Pattern Normal 01/19/24 14:49 Blood Pressure 135/77 01/19/24 14:08 Pulse Oximetry 97 01/19/24 14:08 Respiratory End-tidal CO2 33 01/19/24 12:05 Oxygen Delivery Method Room Air 01/19/24 14:08 Oxygen Flow Rate 0 01/19/24 14:08 Pain Level 0 01/19/24 12:05 Comment Denies pain. 01/19/24 12:50 Intake & Output 01/18/24 01/19/24 01/19/24 23:59 11:59 23:59 Intake Total 400 / 1999.0 1600.0 / 1999.0 Balance 400 / 1999.0 1600.0 / 1999.0 Weight 160 lb 160 lb 160 lb Intake: IV 400 / 1999.0 1600.0 / 1999.0 Other: Urine Color Yellow Urine Appearance Clear Urine Odor None Comment Patient able to independently urinate. Emesis Description None None Voiding Methods Toilet PFSH All Active Problems Dysphagia (Acute) Schatzki's ring of distal esophagus (Acute) Mouth ulcer (Acute) Mild anemia (Acute) Esophageal stricture (Acute) Osteoarthritis of left knee (Acute) Nonspecific paroxysmal spell (Acute) Memory loss (Acute) Dysarthria (Acute) Primary osteoarthritis of right knee (Acute 02/10/18) Osteoarthritis (Chronic) Loss of balance (Acute) Alcohol use (Acute) Dysphagia, pharyngeal phase (Acute) Essential tremor (Acute) Imbalance (Acute) Medical History Loose stools Rosacea Pulmonary fibrosis Erectile dysfunction Benign essential hypertension GERD (gastroesophageal reflux disease) Mild cognitive impairment, so stated Hypertension Cataract Osteoarthritis of right knee Hyperlipidemia Macular degeneration Surgical History History of esophagogastroduodenoscopy (~2023) S/P cataract extraction Family History Father Heart disease Mother Breast cancer Social History Smoking/Tobacco Use Status: Former Tobacco Use Quit Date: 11/28/82 Smoking risk assessment performed?: Yes Alcohol Intake: current Alcohol Intake frequency: 0-2 drinks per day Alcohol type: wine Drug use: Never Substance use type: does not use Household members: spouse Housing: house Number of Children: 3 number of grandchildren: 6 What is your relationship status?: Panel score (0-1 are the most socially isolated patients): 1 Seatbelt use: always Do you feel safe at home: Yes Do you feel safe in your relationship?: Yes Time Spent with Patient Time Spent with Patient: <45 minutes Time was spent: preparing to see the patient(eg.review tests), referring, communicating with other health assistant child care teacher, indepentently interpreting results, counseling the patient and care coordination
--- NOTE | 2024-01-19 19:54 | PDOC.CMPRO ---
Date of service: 01/19/24 Time of Service: 19:54 Care Management Progress Note Progress Note Text Progress Note Text: Abelino was admitted with acute dysphagia. He went to the OR for dilatation of Schatzkis ring to 2 cm. Post-operatively he did well and was discharge home before CM was able to meet with him. SDOH(Care Management) Screening Will the Patient Participate in the Screening?: Yes Do you worry about having a steady place to live?: no Problems where you live: no known problems In the past 12 months, have you had to go without electric, gas, oil or water in your home?: no Have you or anyone in your house had to go without enough food to eat?: no Has lack of transportation kept you from medical appointments or from doing things needed for daily living?: no Has anyone in your support network made you feel unsafe for any reason?: no
== END 2024-01-19 15:42 | disposition home or self-care (01) ==
LOC: ER 01-19 07:57 → MS 01-19 08:29
PROVIDERS: Admitting Provider Surgery; Emergency Provider Emergency Medicine; PCP Family Medicine; Visit Provider Surgery
PROC: 0DJ68ZZ Inspection of Stomach, Via Natural or Artificial Opening Endoscopic (ICD-10-PCS; CPT 43235; principal; 2024-01-19 10:45)
DX: K22.2 Esophageal obstruction (principal); Z79.899 Other long term (current) drug therapy; D64.9 Anemia, unspecified; R41.3 Other amnesia; F10.90 Alcohol use, unspecified, uncomplicated; M17.0 Bilateral primary osteoarthritis of knee; G20.A1 Parkinson's disease without dyskinesia, without mention of fluctuations; R13.13 Dysphagia, pharyngeal phase; K21.9 Gastro-esophageal reflux disease without esophagitis; I10 Essential (primary) hypertension; E78.5 Hyperlipidemia, unspecified; F02.A0 Dementia in other diseases classified elsewhere, mild, without behavioral disturbance, psychotic disturbance, mood disturbance, and anxiety; K44.9 Diaphragmatic hernia without obstruction or gangrene
CPT/HCPCS: 43220; 36415; 80048; 96372; 99223; 99239; 99285; J1650; 71046; 85025; G0378; J2001; J2704; J3490

== ENCOUNTER → 2024-02-15 09:41 | Outpatient (BNVA) | payer MEDICARE, SELFPAY | PROVIDERS: PCP Student in an Organized Health Care Education/Training Program; Referring Provider Student in an Organized Health Care Education/Training Program; Visit Provider Surgery | DX: K22.2 Esophageal obstruction (principal) | CPT/HCPCS: 99213 ==

== ENCOUNTER → 2024-03-13 12:58 | Outpatient (BNVA) | payer MEDICARE, SELFPAY | PROVIDERS: PCP Student in an Organized Health Care Education/Training Program; Visit Provider Psychiatry & Neurology Neurology | DX: R26.89 Other abnormalities of gait and mobility (principal); G25.0 Essential tremor; R41.3 Other amnesia; R40.4 Transient alteration of awareness | CPT/HCPCS: 99213 ==

== ENCOUNTER → 2024-04-10 04:31 | Outpatient (CLI) | payer MEDICARE, SELFPAY ==
--- NOTE | 2024-04-10 | DI.MRI_ITS ---
Exam(s) MR LUMBAR SPINE WO EXAM: MR LUMBAR SPINE WO CLINICAL HISTORY: M54.50 LBP, persistent with radiculopathy down knees not improving with PT. TECHNIQUE: Multiplanar multisequence MRI of the Lumbar spine was performed. COMPARISON: There are no plain films of the lumbar spine available time this MRI interpretation. FINDINGS: Five lumbar vertebrae are presumed. Conus medullaris is at normal level. There is no evidence of conus mass nor subjacent clumping of in trathecal nerve roots to suggest arachnoiditis. The distal thecal sac appears unremarkable.There is no evidence of Tarlov intrasacral cysts nor other significant findings within the sacral canal Bones:There are no fractures nor ominous osseous lesions in the lumbar vertebral bodies and visualize d sacrum. There are Modic type 1 sub endplate marrow edema changes on both sides of the L4-5 disc sp leesa (see below). With respect to the individual levels... T12-L1: Unremarkable L1-2: There is some disc space narrowing on the right side of the disc space and a small asymmetric a nnular bulge at this level is evident on both axial and sagittal images. This is not enlarged disc h erniation. Central canal dimensions are normal. There is no significant foraminal stenosis on eithe r side at this level. Mild facet joint degenerative changes are evident. L2-3: This level exhibits decreased disc height more so on the right than left side. There is no sig nificant disc herniation or central canal stenosis. Mild annular bulging noted which is symmetrical and extends into the floor both exiting neural foramina. There is only mild bilateral foraminal sten osis. No significant facet arthropathy. L3-4: This level exhibits disc space narrowing, also more prominent on the right than left side. The re is broad symmetrical posterior annular bulging and osseous lipping but without a dominant disc her niation. Central canal dimensions are lower normal. There is moderate foraminal stenosis on the rig ht side at this level which is related to the asymmetric disc height loss and slightly more prominent degenerative change in the right facet joint on the left facet joint. There is no true foraminal st enosis on the left side at this level.. L4-5: This level exhibits advanced disc space narrowing and Modic type 1 sub endplate marrow edema ch anges. No listhesis. Posteriorly there is annular bulging which extends into the floor of the exiti ng right neural foramen. Central canal dimensions are lower normal. There is moderate foraminal neisha nosis on the right side and moderate-severe foraminal stenosis on the left side. L5-S1: This level exhibits moderate disc space narrowing. Posteriorly symmetrical broad annular bulg ing without a dominant disc herniation nor central canal stenosis. However, there is significant delmy ateral foraminal stenosis, slightly more so on the left side. This foraminal stenosis is due to the significant disc height loss and there is impingement of the exiting nerve roots between the overlyin g L5 pedicles and subjacent annular bulging at this level. There are moderate facet arthropathy barker ges bilaterally. Soft tissues: Small benign cysts are noted in the right kidney. Also incidentally noted is sigmoid diverticulosis. IMPRESSION: 1. Multilevel findings as described individually above. There is no dominant disc herniation and no prominent central spinal canal stenosis. 2. However, there is multilevel significant foraminal stenosis at L3-4, L4-5, and L5-S1 levels, as de scribed individually above. 3. There are Modic type 1 sub endplate marrow edema changes at L4-5 level but without evidence of lis thesis at this level. DATA REPOSITORY:
== END ==
PROVIDERS: PCP Student in an Organized Health Care Education/Training Program; Visit Provider Student in an Organized Health Care Education/Training Program
DX: M51.37 Other intervertebral disc degeneration, lumbosacral region (principal)
CPT/HCPCS: 72148

== ENCOUNTER 2024-08-21 14:20 | Outpatient (REF) | payer MEDICARE, SELFPAY ==
[2024-08-21 19:42] LABS: Anion Gap 6.1 mmol/L (3-11); BUN 15 mg/dL (7-18); CO2 28.9 mmol/L (21.0-32.0); Calcium 8.8 mg/dL (8.5-10.1); Chloride 99 mmol/L (98-107); Estimated GFR 75.14 (mL/min/1.73m2); Glucose 91 mg/dL (74-106); Potassium 4.7 mmol/L (3.5-5.1); Sodium 134 mmol/L (136-145)
== END 2024-08-21 14:21 | disposition home or self-care (01) ==
LOC: NCHCN 14:20
PROVIDERS: PCP Student in an Organized Health Care Education/Training Program; Visit Provider Student in an Organized Health Care Education/Training Program
DX: I10 Essential (primary) hypertension (principal)
CPT/HCPCS: 80048

== ENCOUNTER 2024-09-28 11:23 | Outpatient (CLI) | payer MEDICARE, SELFPAY ==
[2024-09-28 18:14] LABS: Rheumatoid Factor <8.6 IU/mL (<12.0)
[2024-10-01 13:23] LABS: ANA Interpretation Negative (Negative)
== END 2024-09-28 11:24 | disposition home or self-care (01) ==
LOC: LBO 11:24
PROVIDERS: PCP Student in an Organized Health Care Education/Training Program; Visit Provider Student in an Organized Health Care Education/Training Program
DX: M54.50 Low back pain, unspecified (principal)
CPT/HCPCS: 36415; 86038; 86431

== ENCOUNTER → 2025-03-12 12:17 | Outpatient (BNVA) | payer MEDICARE, SELFPAY | PROVIDERS: PCP Student in an Organized Health Care Education/Training Program; Visit Provider Psychiatry & Neurology Neurology | DX: R26.89 Other abnormalities of gait and mobility (principal); G25.0 Essential tremor; R41.3 Other amnesia; R40.4 Transient alteration of awareness; M19.90 Unspecified osteoarthritis, unspecified site; I10 Essential (primary) hypertension; E78.5 Hyperlipidemia, unspecified | CPT/HCPCS: 99214 ==

== ENCOUNTER 2025-07-10 14:51 | Outpatient (REF) | payer MEDICARE, SELFPAY ==
[2025-07-10 15:32] LABS: Abs Immature Grans 0.07 10^3/uL (0.0-0.06); HCT 35.4 % (40.0-50.0); HGB 11.9 g/dL (13.5-17.5); Immature Grans % 1.3 %; MCH 32.0 pg (27.0-33.0); MCHC 33.6 % (32.0-36.0); MCV 95 fL (80-95); MPV 10.6 fL (8.0-11.0); Platelet Count 184 10^3/uL (130-400); RBC 3.72 10^6/uL (4.36-5.78); RDW 13.2 % (11.8-14.1); RDW-SD 46.4 fL; WBC 5.47 10^3/uL (4.4-10.8)
[2025-07-10 16:49] LABS: ALT 18 U/L (16-63); AST 18 U/L (15-37); Albumin 3.5 g/dL (3.4-5.0); Alkaline Phosphatase 59 U/L (46-116); Anion Gap 7.2 mmol/L (3-11); BUN 20 mg/dL (7-18); Bilirubin, Total 0.5 mg/dL (0.2-1.0); CO2 27.8 mmol/L (21.0-32.0); Calcium 8.5 mg/dL (8.5-10.1); Chloride 101 mmol/L (98-107); Estimated GFR 84.74 (mL/min/1.73m2); Glucose 101 mg/dL (74-106); Potassium 5.0 mmol/L (3.5-5.1); Sodium 136 mmol/L (136-145); Total Protein 6.5 g/dL (6.4-8.2)
== END 2025-07-10 14:52 | disposition home or self-care (01) ==
LOC: NCHCN 14:51
PROVIDERS: PCP Student in an Organized Health Care Education/Training Program; Visit Provider Student in an Organized Health Care Education/Training Program
DX: I10 Essential (primary) hypertension (principal)
CPT/HCPCS: 80053; 85025

== ENCOUNTER 2025-09-05 10:49 | Outpatient (REF) | payer MEDICARE, SELFPAY ==
[2025-09-05 15:30] LABS: Abs Immature Grans 0.07 10^3/uL (0.0-0.06); HCT 41.2 % (40.0-50.0); HGB 14.0 g/dL (13.5-17.5); Immature Grans % 1.2 %; MCH 33.2 pg (27.0-33.0); MCHC 34.0 % (32.0-36.0); MCV 98 fL (80-95); MPV 10.7 fL (8.0-11.0); Platelet Count 194 10^3/uL (130-400); RBC 4.22 10^6/uL (4.36-5.78); RDW 13.6 % (11.8-14.1); RDW-SD 49.1 fL; WBC 5.95 10^3/uL (4.4-10.8)
[2025-09-05 15:55] LABS: Iron 95 ug/dL (65-175); Total Iron Binding Capacity 238 ug/dL (250-450); Transferrin Sat 40 % (20-55)
[2025-09-05 16:20] LABS: Ferritin 378 ng/mL (26-388); Folate 8.1 ng/mL (8.6-20.0); TSH (W/Ref FT4) 1.95 uIU/mL (0.36-3.74); Vitamin B12 1174 pg/mL (193-986)
[2025-09-06 13:14] LABS: Albumin 58.8 % (55.8-66.1); Albumin g/dL 4.1 g/dL (3.6-5.2); Alpha 1 g/dL 0.30 g/dL (0.15-0.40); Alpha 2 g/dL 0.70 g/dL (0.50-1.00); Beta g/dL 0.90 g/dL (0.60-1.20); Gamma g/dL 1.10 g/dL (0.60-1.60); Total Protein 7.0 g/dL (6.3-8.2)
== END 2025-09-05 10:50 | disposition home or self-care (01) ==
LOC: NCHCN 10:49
PROVIDERS: PCP Student in an Organized Health Care Education/Training Program; Visit Provider Student in an Organized Health Care Education/Training Program
DX: D64.9 Anemia, unspecified (principal)
CPT/HCPCS: 82607; 82728; 82746; 83540; 83550; 84165; 84443; 85025; 85045

== ENCOUNTER → 2025-09-10 12:30 | Outpatient (BNVA) | payer MEDICARE, SELFPAY | PROVIDERS: PCP Student in an Organized Health Care Education/Training Program; Visit Provider Psychiatry & Neurology Neurology | DX: G25.0 Essential tremor (principal); R41.3 Other amnesia; R26.89 Other abnormalities of gait and mobility; R40.4 Transient alteration of awareness; M15.0 Primary generalized (osteo)arthritis; I10 Essential (primary) hypertension | CPT/HCPCS: 99214 ==